=== PATIENT | female | born 1955 | race American Indian/Alaskan Native ===

== ENCOUNTER 2016-10-28 14:41 | Emergency (ER) | payer OTHER ==
[2016-10-28 14:41] VITALS: BMI 33.4
[2016-10-28 15:06] VITALS: BP 101/68; PULSE 70; RESP 19; TEMP 98.1; O2SAT 98
--- NOTE | 2016-10-28 15:44 | ED PDOC ---
Arrival/HPI - General Chief Complaint: Upper Extremity Problem/Injury Time Seen by Provider: 10/28/16 15:09 Historian: Patient - History of Present Illness Narrative History of Present Illness (Text): 10/28/16 15:41 61yo female who present to ED for left shoulder pain x one month. states she saw her PMD for the pain and was given unknown analgesic that helped the pain, but then ran out of the medication. States she was taking flexeril and pain medication that was given by her friend without relieve. she denies weakness, trauma, paresthesia, chest pain, any other complaint. Past Medical History - Provider Review Nursing Documentation Reviewed: Yes - Infectious Disease Hx of Infectious Diseases: None - Tetanus Immunization Tetanus Immunization: Unknown - Cardiac Hx Mitral Valve Prolapse: Yes - Psychiatric Hx Anxiety: Yes Hx Bipolar Disorder: Yes Hx Depression: No Hx Emotional Abuse: No Hx Physical Abuse: No Hx Substance Use: No - Surgical History Hx Orthopedic Surgery: Yes (RIGHT FOOT) - Anesthesia Hx Anesthesia: Yes Hx Anesthesia Reactions: No - Suicidal Assessment Feels Threatened In Home Enviroment: No Family/Social History - Physician Review Nursing Documentation Reviewed: Yes Family/Social History: Unknown Family HX Smoking Status: Never Smoked Hx Alcohol Use: No Hx Substance Use: No Hx Substance Use Treatment: No Allergies/Home Meds Allergies/Adverse Reactions: Allergies metronidazole Allergy (Verified 10/28/16 15:02) ANAPHYLAXIS Tetracyclines Allergy (Verified 10/28/16 15:02) ANAPHYLAXIS Home Medications: Home Meds Medication Instructions Recorded Confirmed Alprazolam [Xanax Xr] 2 mg PO DAILY 09/19/12 10/28/16 Perphenazine 8 mg PO HS 09/19/12 10/28/16 Trazodone Hydrochloride 300 mg PO HS 09/19/12 10/28/16 Review of Systems - Physician Review All systems were reviewed & negative as marked: Yes - Review of Systems Constitutional: Normal Eyes: Normal ENT: Normal Respiratory: Normal Cardiovascular: Normal Gastrointestinal: Normal Genitourinary Female: Normal Musculoskeletal: Arthralgias (LEft shoudler pain) Skin: Normal Neurological: Normal Endocrine: Normal Hemo/Lymphatic: Normal Psychiatric: Normal Physical Exam Vital Signs Reviewed: Yes Vital Signs Temp Pulse Resp BP Pulse Ox 10/28/16 15:05 98.1 F 70 19 101/68 98 Temperature: Afebrile Blood Pressure: Normal Pulse: Regular Respiratory Rate: Normal Appearance: Positive for: Well-Appearing, Non-Toxic, Comfortable Pain Distress: None Mental Status: Positive for: Alert and Oriented X 3 - Systems Exam Head: Present: Atraumatic, Normocephalic Pupils: Present: PERRL Extroacular Muscles: Present: EOMI Conjunctiva: Present: Normal Mouth: Present: Moist Mucous Membranes Neck: Present: Normal Range of Motion Respiratory/Chest: Present: Clear to Auscultation, Good Air Exchange. No: Respiratory Distress, Accessory Muscle Use Cardiovascular: Present: Regular Rate and Rhythm, Normal S1, S2. No: Murmurs Abdomen: Present: Normal Bowel Sounds. No: Tenderness, Distention, Peritoneal Signs Back: Present: Normal Inspection Upper Extremity: Present: Normal ROM, NORMAL PULSES, Tenderness (Left proximal shoulder), Neurovascularly Intact, Capillary Refill < 2s. No: Cyanosis, Edema, Swelling, Erythema, Temperature Abnormalties, Deformity Lower Extremity: Present: Normal Inspection. No: Edema Neurological: Present: GCS=15, CN II-XII Intact, Speech Normal Skin: Present: Warm, Dry, Normal Color. No: Rashes Psychiatric: Present: Alert, Oriented x 3, Normal Insight, Normal Concentration Medical Decision Making ED Course and Treatment: 10/28/16 16:09 Left shoulder xray - No acute fracture/Dislocation noted Result was DW the pt. Her pain was controlled in ED with medication. She was referred to orthoAllan Gutierrez with Napros[facility]. TRT ED for any new or worsening symptoms. - RAD Interpretation Radiology Orders: 10/28/16 15:11 SHOULDER LEFT [RAD] Stat - Medication Orders Current Medication Orders: Discontinued Medications Ketorolac Tromethamine (Toradol) 60 mg IM STAT STA Stop: 10/28/16 15:13 Disposition/Present on Arrival - Present on Arrival Any Indicators Present on Arrival: No History of DVT/PE: No History of Uncontrolled Diabetes: No Urinary Catheter: No History of Decub. Ulcer: No History Surgical Site Infection Following: None - Disposition Have Diagnosis and Disposition been Completed?: Yes Diagnosis: Shoulder pain Disposition: HOME/ ROUTINE Disposition Time: 16:10 Patient Plan: Discharge Condition: STABLE Discharge Instructions (ExitCare): Shoulder Pain (ED) Additional Instructions: Follow up with your Doctor/Orthopedist Return to ED for any new or worsening symptoms Prescriptions: Naproxen [Naprosyn] 500 mg PO BID #20 tab Referrals: Jez Gray III, MD [Medical Doctor] - Follow up with primary
--- NOTE | 2016-10-28 17:28 | RAD ---
PROCEDURE: Radiographs of the Left Shoulder HISTORY: shoulder pain COMPARISON: No prior. FINDINGS: BONES: Normal. No fracture. JOINTS: Unremarkable glenohumeral articulation. Very mild acromioclavicular degenerative arthritis. SOFT TISSUES: Normal. OTHER FINDINGS: None. IMPRESSION: Mild acromioclavicular degenerative arthritis. Otherwise unremarkable.
== END 2016-10-28 16:25 | disposition home or self-care (01) ==
LOC: ED 14:41
DX: M25.512 Pain in left shoulder (principal)
CPT/HCPCS: 73030; 96372; 99283; J1885

== ENCOUNTER 2016-11-21 20:13 | Inpatient (IN) | payer MEDICAID, OTHER ==
[2016-11-21 20:32] VITALS: BMI 28.9
--- NOTE | 2016-11-21 20:54 | ED PDOC ---
Arrival/HPI - General Chief Complaint: Psychiatric Evaluation Time Seen by Provider: 11/21/16 20:50 Historian: Patient - History of Present Illness Narrative History of Present Illness (Text): 11/21/16 20:51 61 y/o female, pmh including chronic anxiety, allergic to flagyl and tetaracyclines, c/o feeling anxious/depress and suicidal ideation x 3 days. Pt. stated that she has been on the xanax 0.5mg for years, recently change to xanax 0.25mg po which is not doing the job for her. Pt. stated that she feels very depress, sad, unable to sleep, wants to overdose on all her medications if she can not feel better. Pt. has no homicidal ideation. Pt. stated that she accepted the fact that her brother on 11/15/2016. Pt. has no auditory or visual hallucination, no homicidal or suicidal ideation. Past Medical History - Provider Review Nursing Documentation Reviewed: Yes - Infectious Disease Hx of Infectious Diseases: None - Tetanus Immunization Tetanus Immunization: Unknown - Reproductive Menopause: Yes - Cardiac Hx Mitral Valve Prolapse: Yes - Psychiatric Hx Anxiety: Yes Hx Bipolar Disorder: Yes Hx Substance Use: No - Surgical History Hx Orthopedic Surgery: Yes (RIGHT FOOT) - Anesthesia Hx Anesthesia: Yes Hx Anesthesia Reactions: No - Suicidal Assessment Feels Threatened In Home Enviroment: No Family/Social History - Physician Review Nursing Documentation Reviewed: Yes Family/Social History: Unknown Family HX Smoking Status: Never Smoked Hx Alcohol Use: No Hx Substance Use: No Hx Substance Use Treatment: No Allergies/Home Meds Allergies/Adverse Reactions: Allergies metronidazole Allergy (Verified 11/22/16 03:29) ANAPHYLAXIS Tetracyclines Allergy (Verified 11/22/16 03:29) ANAPHYLAXIS Home Medications: Home Meds Medication Instructions Recorded Confirmed ALPRAZolam [Xanax] 0.25 mg PO DAILY 11/21/16 11/22/16 traZODone [trazodone Hydrochloride] 300 mg PO HS 11/21/16 11/22/16 Review of Systems - Review of Systems Constitutional: absent: Fatigue, Fevers Eyes: absent: Vision Changes ENT: absent: Hearing Changes Respiratory: absent: SOB, Cough Cardiovascular: absent: Chest Pain Gastrointestinal: absent: Abdominal Pain, Nausea, Vomiting Musculoskeletal: absent: Arthralgias Skin: absent: Rash, Pruritis Neurological: absent: Headache, Dizziness Psychiatric: Anxiety, Depression, Suicidal Ideation Physical Exam Vital Signs Reviewed: Yes Vital Signs Temp Pulse Resp BP Pulse Ox 11/21/16 23:10 77 19 144/59 L 98 11/21/16 20:31 99.1 F 91 H 16 133/85 99 Temperature: Afebrile Blood Pressure: Normal Pulse: Regular Respiratory Rate: Normal Appearance: Positive for: Well-Appearing, Non-Toxic, Comfortable Pain Distress: None Mental Status: Positive for: Alert and Oriented X 3 - Systems Exam Head: Present: Atraumatic, Normocephalic Pupils: Present: PERRL Extroacular Muscles: Present: EOMI Conjunctiva: Present: Normal Mouth: Present: Moist Mucous Membranes Neck: Present: Normal Range of Motion Respiratory/Chest: Present: Clear to Auscultation, Good Air Exchange. No: Respiratory Distress, Accessory Muscle Use Cardiovascular: Present: Regular Rate and Rhythm, Normal S1, S2. No: Murmurs Abdomen: Present: Normal Bowel Sounds. No: Tenderness, Distention, Peritoneal Signs Back: Present: Normal Inspection Upper Extremity: Present: Normal Inspection. No: Cyanosis, Edema Lower Extremity: Present: Normal Inspection. No: Edema Neurological: Present: GCS=15, Speech Normal, Motor Func Grossly Intact, Gait Normal, Memory Normal Skin: Present: Warm, Dry, Normal Color. No: Rashes Psychiatric: Present: Alert, Oriented x 3, Normal Insight, Normal Concentration , Anxious, Depressed Mood, Suicidal Ideation. No: Homicidal Ideation Medical Decision Making ED Course and Treatment: 11/21/16 20:54 -labs/ua/uds -ekg/chest x-ray -HAZEL paged and will come to evaluate the patient. 11/21/16 23:00 -Labs are non-significant -UDS show +benzo -EKG show NSR @ 81 BPM, no ST elevation or depression, no T wave inversion -Chest x-ray show no active disease -HAZEL Grullon evaluated the patient, request to be admitted to DR. Angelia Long for bipolar disorder -I discussed with DR. Young and he will put in the admission order. - Lab Interpretations Lab Results: 11/21/16 21:35 11/21/16 21:35 Lab Results 11/21/16 22:00: Urine Opiates Screen Negative, Urine Methadone Screen Negative, Ur Barbiturates Screen Negative, Ur Phencyclidine Scrn Negative, Ur Amphetamines Screen Negative, U Benzodiazepines Scrn Positive H, U Oth Cocaine Metabols Negative, U Cannabinoids Screen Negative 11/21/16 21:35: Alcohol, Quantitative < 10 11/21/16 21:35: Salicylates < 1 L, Acetaminophen < 10.0 L 11/21/16 21:35: Sodium 142, Potassium 3.6, Chloride 103, Carbon Dioxide 29, Anion Gap 14, BUN 17, Creatinine 0.7, Est GFR ( Amer) > 60, Est GFR (Non- Af Amer) > 60, Random Glucose 101, Calcium 10.0, Total Bilirubin 0.7, AST 20, ALT 25, Alkaline Phosphatase 58, Total Protein 8.1, Albumin 4.5, Globulin 3.6, Albumin/Globulin Ratio 1.3 11/21/16 21:35: WBC 8.9 D, RBC 4.30, Hgb 13.1, Hct 38.7, MCV 90.0, MCH 30.5, MCHC 33.9, RDW 11.9, Plt Count 215, MPV 9.4, Gran % 69.5 H, Lymph % (Auto) 23.4 , [place] % (Auto) 6.8 H, Eos % (Auto) 0.1 L, Baso % (Auto) 0.2, Gran # 6.16, Lymph # 2.1, [place] # 0.6, Eos # 0.0, Baso # 0.02 I have reviewed the lab results: Yes Interpretation: No clinic. lab abnormalty - RAD Interpretation Radiology Orders: 11/21/16 20:50 CHEST PORTABLE [RAD] Stat no active disease Glove Examiner: Radiologist - Medication Orders Current Medication Orders: Acetaminophen (Tylenol 325mg Tab) 650 mg PO Q6 PRN PRN Reason: Pain, Mild (1-3) Al Hydrox/Mg Hydrox/Simethicone (Maalox Plus 30 Ml) 30 ml PO DAILY PRN PRN Reason: Indigestion / Heartburn Alprazolam (Xanax) 0.5 mg PO HS JIMMIE PRN Reason: Protocol Last Admin: 11/24/16 21:43 Dose: 0.5 mg Re-Assess: Reassess Psych Meds Document 11/24/16 22:43 WP (Rec: 11/24/16 23:05 WP [id number]) Reassess Psych Med Effective Ibuprofen (Motrin Tab) 400 mg PO Q6H PRN PRN Reason: Pain, moderate (4-7) Pantoprazole Sodium (Protonix Ec Tab) 40 mg PO 0600 [facility] Last Admin: 11/25/16 06:59 Dose: 40 mg Perphenazine (Perphenazine) 8 mg PO HS JIMMIE Last Admin: 11/24/16 21:43 Dose: 8 mg Trazodone HCl (Desyrel) 300 mg PO HS JIMMIE Last Admin: 11/24/16 21:44 Dose: 300 mg Zaleplon (Sonata) 10 mg PO HS PRN PRN Reason: Insomnia Discontinued Medications Alprazolam (Xanax) 0.25 mg PO DAILY JIMMIE PRN Reason: Protocol Stop: 11/29/16 08:01 Last Admin: 11/24/16 10:22 Dose: Not Given Non-Admin Reason: Patient Refused Perphenazine (Perphenazine) 4 mg PO BID JIMMIE Last Admin: 11/23/16 08:40 Dose: 4 mg Perphenazine (Perphenazine) 8 mg PO HS JIMMIE Perphenazine (Perphenazine) 4 mg PO HS JIMMIE Stop: 11/23/16 22:01 Last Admin: 11/23/16 21:36 Dose: 4 mg Trazodone HCl (Desyrel) 100 mg PO HS JIMMIE Last Admin: 11/21/16 22:00 Dose: 100 mg Zaleplon (Sonata) 5 mg PO HS PRN PRN Reason: Insomnia Last Admin: 11/22/16 21:42 Dose: 5 mg Zaleplon (Sonata) 5 mg PO HS PRN PRN Reason: Insomnia Last Admin: 11/24/16 21:50 Dose: 5 mg - PA / GOLF STUD RIVETER / Resident Statement /DO has reviewed & agrees with the documentation as recorded. Disposition/Present on Arrival - Present on Arrival Any Indicators Present on Arrival: No History of DVT/PE: No History of Uncontrolled Diabetes: No Urinary Catheter: No History of Decub. Ulcer: No History Surgical Site Infection Following: None - Disposition Have Diagnosis and Disposition been Completed?: Yes Diagnosis: Bipolar disorder Disposition: HOSPITALIZED Disposition Time: 23:02 Patient Plan: Admission Patient Problems: Current Active Problems Problem Status Onset Bipolar disorder Acute Anxiety Acute Insomnia Acute Condition: STABLE
[2016-11-21 21:40] LABS: ADD MANUAL DIFF? NO
[2016-11-21 21:47] LABS: BASO # 0.02 K/mm3 (0.0-2.0); BASO % 0.2 % (0.0-3.0); EOS % 0.1 % (1.5-5.0); GRAN # 6.16 (1.4-6.5); GRAN % 69.5 % (50.0-68.0); HEMATOCRIT 38.7 % (36.0-48.0); LYMPH # 2.1 (1.2-3.4); LYMPH % 23.4 % (22.0-35.0); MEAN CORPUSCULAR HEMOGLOBIN 30.5 pg (25.0-35.0); MEAN CORPUSCULAR HGB CONC 33.9 g/dl (31.0-37.0); MEAN PLATELET VOLUME 9.4 fl (7.0-11.0); MONO # 0.6 (0.1-0.6); MONO % 6.8 % (1.0-6.0); PLATELET COUNT 215 10^3/uL (120.0-450.0); RED CELL DISTRIBUTION WIDTH 11.9 % (11.5-14.5); WHITE BLOOD COUNT 8.9 10^3/ul (4.5-11.0)
[2016-11-21 21:54] LABS: ALB/GLOB RATIO 1.3 (1.1-1.8); ALKALINE PHOSPHATASE 58 U/L (38-133); ALT/SGPT 25 U/L (7-56); AST/SGOT 20 U/L (15-39); BILIRUBIN,TOTAL 0.7 mg/dL (0.2-1.3); BLOOD UREA NITROGEN 17 mg/dL (7-21); CARBON DIOXIDE 29 mmol/L (21-33); CHLORIDE 103 mmol/L (98-107); GFR AFRICAN-AMERICAN > 60; GLUCOSE,RANDOM 101 mg/dL (70-110); POTASSIUM 3.6 mmol/L (3.6-5.0); SODIUM 142 mmol/L (132-148); TOTAL PROTEIN 8.1 g/dL (5.8-8.3)
[2016-11-21 23:11] LABS: PH,URINE 6.5 (4.7-8.0); URINE BILIRUBIN NEGATIVE (NEGATIVE); URINE BLOOD NEGATIVE (NEGATIVE); URINE GLUCOSE (UA) NEGATIVE (NEGATIVE); URINE KETONE TRACE mg/dL (NEGATIVE); URINE LEUKOCYTE ESTERASE NEGATIVE Leu/uL (NEGATIVE); URINE PROTEIN NEGATIVE mg/dL (<30 mg/dL)
[2016-11-21 23:19] LABS: URINE APPEARANCE CLEAR (CLEAR); URINE COLOR YELLOW (YELLOW)
[2016-11-22] MEDS ORDERED: Alum-Mag Hydrox-Simethicone Susp (30 mL) PO PRN (03:38)
--- NOTE | 2016-11-22 04:00 | PCM.BM ---
<AntoninaArturo O - Last Filed: 11/22/16 03:48> Treatment Plan Problems - Problems identified on initial assessmt DEPRESSION Date Initiated: 11/22/16 Time Initiated: :20 Assessment reference: NA Status: Active POOR SLEEP Date Initiated: 11/22/16 Time Initiated: :20 Assessment reference: NA Status: Active Treatment assets and liabiliti Patient Assests: cooperative, ADL independent, physically healthy, good support system Patient Liabilities: financial problems - Milieu Protocol Maintain good personal hygiene: daily Encourage regular showers, daily Remind patient to perform daily oral care, daily Assist patient to perform ADL's Conduct patient checks and document Observation sheet: Q15 minutes Maintain personal safety: daily Educate patient to report safety concerns to staff, daily Monitor environment for contraband/sharps Medication safety: Monitor for expected outcome, potential side effects: daily, Assess barriers to learning: daily, Assess readiness for medication education: daily Family Contact Family contact: Patient agrees to contact Family contact name: Heather [phone] dominick [phone] Discharge/Continuing Care - Education Needs Education Needs: Patient Medication, Patient Diagnosis/Disease Process, Patient Coping Skills, Patient Anger Management skills, Patient Placement options, Patient Community resources, Patient Activities of Daily Living, Patient Pain, Patient Nutrition - Discharge Discharge Criteria: Free of Suicidal thoughts, Normal sleep pattern, Ability to care for self Discharge to:: Home <Pablo Wiley - Last Filed: 11/24/16 07:54> - Diagnosis (1) Anxiety Status: Acute (2) Insomnia Status: Acute (3) Bipolar disorder Status: Acute <Carolyn Vasquez - Last Filed: 11/24/16 13:30> Family Contact - Outside Agency [facility] Care involvment: Not involved Agency contact name: [facility] Agency contact number: [phone] <Stacy Vlilegas - Last Filed: 11/24/16 15:49>
[2016-11-22 08:35] LABS: CHOLESTEROL 204 mg/dL (130-200)
--- NOTE | 2016-11-22 09:51 | PCM.PSYCH ---
Initial Psychiatric Evaluation - Initial Psychiatric Evaluation Type of Admission: Voluntary Legal Status: Capacity Chief Complaint (in patient's own words): "I started feeling really bad after my doctor changed my meds" Patient's Reaction to Hospitalization: Patient is a single 61 y/o female history of depression, anxiety and hallucinations, reportedly 10-20 admissions in the past- most recently 10 years ago, prior SA x 10 years ago, in treatment with Dr. Ayala at [facility] who presented to the ER with complaints of anxiety, depression, poor sleep and suicidal ideation x 3 days. Pt. reported that her main stressor was the recent change in her psychiatric medications approximately one week ago. Patient indicates that Dr. Ayala lowered her trazodone dose from 300 mg to 100 mg and decreased her Xanax dose by 50% from 0.5 mg HS to 0.25 mg HS. Patient reports that Dr. Ayala did this because he felt her doses were too high. She wasn't entirely comfortable with this plan at the time. Patient also indicates that trilafon 8 mg HS was also discontinued upon her request because she hasn't experienced any hallucinations in many years. Patient reports experiencing increased lability, anhedonia, crying spells, anxiety, insomnia and poor appetite since these medication changes. Patient also had passive suicidal thoughts but these have remitted since admission. She tried reaching out to Dr. Ayala but according to patient, he did not call her back. Patient reports feeling quite stable on her prior regimen and would like to resume prior doses. She denies any hallucinations and does not appear to be responding to internal stimuli. Thus far she has been in very good control on the unit. Affect is constricted and thought process is a little scattered and tangential but she is easily redirected. Insight and judgement are fair. OF NOTE: ER report indicated that patient's brother on 11/15/2016 however patient did not offer this information during admission assessment. PSYCHIATRIC HISTORY Patient reports approximately 10 to 20 prior admissions, her first admission was in her early 20s. Patient's most recent admission was greater than 10 years ago. Indicate prior admissions were at [facility] as well as [facility]. Patient also reports multiple suicide attempts, her most recent one was greater than 10 years ago. Patient currently in treatment at [facility] with Dr. Ayala. She has been seeing Dr. Ayala for less than a year. SOCIAL HISTORY Patient was born and raised in [place]. She reports one annulled marriage many years ago. She has three adult children. Patient's adult son sometimes stays with her as well as her grandson. Patient is unemployed and on disability. Patient graduated high school and some college. She denies any tobacco, drug or alcohol use. Current Medications: Active Medications Generic Name Dose Route Start Last Admin Trade Name Freq PRN Reason Stop Dose Admin Acetaminophen 650 mg 11/22/16 03:33 Tylenol 325mg Tab PO Q6 PRN Pain, Mild (1-3) Al Hydrox/Mg Hydrox/Simethicone 30 ml 11/22/16 03:38 Maalox Plus 30 Ml PO DAILY PRN Indigestion / Heartburn Alprazolam 0.5 mg 11/21/16 23:45 11/21/16 22:30 Xanax PO 0.5 mg HS JIMMIE Administration Protocol Alprazolam 0.25 mg 11/22/16 08:00 11/22/16 08:22 Xanax PO 11/29/16 08:01 0.25 mg DAILY JIMMIE Administration Protocol Perphenazine 4 mg 11/22/16 08:00 11/22/16 08:22 Perphenazine PO 4 mg BID JIMMIE Administration Trazodone HCl 100 mg 11/21/16 23:45 11/21/16 22:00 Desyrel PO 100 mg HS JIMMIE Administration Zaleplon 5 mg 11/21/16 23:45 Sonata PO HS PRN Insomnia Past Psychiatric History - Past Psychiatric History Pertinent Medical Hx (Current Medical&Sleep Prob, Allergies): Allergies Allergy/AdvReac Type Severity Reaction Status Date / Time metronidazole Allergy ANAPHYLAXIS Verified 11/22/16 03:29 Tetracyclines Allergy ANAPHYLAXIS Verified 11/22/16 03:29 ALPRAZolam [Xanax] 0.25 mg PO DAILY 11/21/16 traZODone [trazodone Hydrochloride] 300 mg PO HS 11/21/16 Mental Status Examination - Affect Affect: Constricted - Motor Activity Motor Activity: Calm - Reliability in Providing Information Reliability in Providing Information: Fair - Speech Speech: Tangential, Other (SCATTERED WITH SOME DIFFICULTY WITH WORD RETRIEVAL) - Formal Thought Process Formal Thought Process: Loosening of associations - Obsessions/Compulsions Obsessions: No Compulsions: No - Cognitive Functions Orientation: Person, Place, Situation Sensorium: Alert Attention/Concentration: Attentive Estimate of Intelligence: Average Judgement: Intact, as evidence by: Insight regarding need for hospitalization Memory: Recent intact, as evidence by: Ability to recall events of the day - Risk Risk: Suicidal, Diminished functioning - Strength & Assets Inventory Strength & Assets Inventory: Family support, Cooperative DSM 5 DX - DSM 5 DSM 5 Diagnosis: Schizoaffective Disorder Anxiety Disorder NOS R/O PONHCO - Recommended/Plan of Treatment Treatment Recommendations and Plan of Treatment: * group, milieu and supportive tx * xanax 0.25 mg AM and 0.5 mg HS for anxiety * Trazodone 300 mg HS for depression and off-label for insomnia * trilafon 4 mg po BID for hx of hallucinations as well current disorganization * Awaiting medical follow up * Vitals reviewed and noted below: Selected Entries 11/21/16 11/21/16 20:31 23:10 Temperature 99.1 F Pulse Rate 91 H 77 Respiratory 16 19 Rate Blood Pressure 133/85 O2 Sat by Pulse 99 98 Oximetry ER LABS 11/21/16 22:00: Urine Opiates Screen Negative, Urine Methadone Screen Negative, Ur Barbiturates Screen Negative, Ur Phencyclidine Scrn Negative, Ur Amphetamines Screen Negative, U Benzodiazepines Scrn Positive H, U Oth Cocaine Metabols Negative, U Cannabinoids Screen Negative 11/21/16 21:35: Alcohol, Quantitative < 10 11/21/16 21:35: Salicylates < 1 L, Acetaminophen < 10.0 L 11/21/16 21:35: Sodium 142, Potassium 3.6, Chloride 103, Carbon Dioxide 29, Anion Gap 14, BUN 17, Creatinine 0.7, Est GFR ( Amer) > 60, Est GFR (Non- Af Amer) > 60, Random Glucose 101, Calcium 10.0, Total Bilirubin 0.7, AST 20, ALT 25, Alkaline Phosphatase 58, Total Protein 8.1, Albumin 4.5, Globulin 3.6, Albumin/Globulin Ratio 1.3 11/21/16 21:35: WBC 8.9 D, RBC 4.30, Hgb 13.1, Hct 38.7, MCV 90.0, MCH 30.5, MCHC 33.9, RDW 11.9, Plt Count 215, MPV 9.4, Gran % 69.5 H, Lymph % (Auto) 23.4 , [place] % (Auto) 6.8 H, Eos % (Auto) 0.1 L, Baso % (Auto) 0.2, Gran # 6.16, Lymph # 2.1, [place] # 0.6, Eos # 0.0, Baso # 0.02 FLOOR LABS 11/22/16 11/22/16 06:50 06:50 Triglycerides 87 Cholesterol 204 H LDL Cholesterol Direct 88 HDL Cholesterol 86 H TSH 3rd Generation 1.66 - Smoking Cessation Smoking Cessation Initiated: No Reason for not providing: PATIENT DENIES TOBACCO USE
--- NOTE | 2016-11-22 11:41 | RAD ---
HISTORY: medical clearance COMPARISON: 10/14/2013 FINDINGS: LUNGS: No active pulmonary disease. PLEURA: No significant pleural effusion identified, no pneumothorax apparent. CARDIOVASCULAR: Normal. OSSEOUS STRUCTURES: No significant abnormalities. VISUALIZED UPPER ABDOMEN: Normal. OTHER FINDINGS: None. IMPRESSION: No active disease.
--- NOTE | 2016-11-22 15:16 | CP.PCM.CON ---
<CASEY ALVARADO - Last Filed: 11/22/16 15:04> History of Present Illness - History of Present Illness History of Present Illness: Medicine Consult Note: Ms. Barker is a 61 year old female with a past medical history significant for depression, anxiety and bipolar disorder presented to [facility] with complaints of anxiety, depression, poor sleep, and suicidal ideation. She reports that the she takes no medications other than the ones prescribed to her by her psychiatrist, Dr. Ayala. Her primary care doctor is Dr. Storey and she sees her for regularly scheduled health maintenance visits and routine lab work. Patient states that she has never been notified of any abnormal results or been told that she has been diagnosed with any medical conditions other than her psychiatric diagnoses. Patient did report that she has had some pain in her left shoulder. A shoulder X-Ray was performed in October 2016 and showed mild AC joint degenerative arthritis. Dr. Storey is aware of this and has prescribed her Naprosyn, scheduled an outpatient MRI and given patient several options for outpatient PT/OT. She denies headache, dizziness, changes in vision, difficulty swallowing, chest pain, palpitations, shortness of breath, cough, abdominal pain , N/V, diarrhea and any numbness/tingling in any of her extremities. Review of Systems - Review of Systems All systems: reviewed and no additional remarkable complaints except (no complaints) Past Patient History - Infectious Disease Hx of Infectious Diseases: None - Tetanus Immunizations Tetanus Immunization: Unknown - Past Social History Smoking Status: Never Smoked - CARDIAC Hx Mitral Valve Prolapse: Yes - PSYCHIATRIC Hx Anxiety: Yes Hx Bipolar Disorder: Yes Hx Substance Use: No - SURGICAL HISTORY Hx Orthopedic Surgery: Yes (RIGHT FOOT) - ANESTHESIA Hx Anesthesia: Yes Hx Anesthesia Reactions: No Meds Allergies/Adverse Reactions: Allergies Allergy/AdvReac Type Severity Reaction Status Date / Time metronidazole Allergy ANAPHYLAXIS Verified 11/22/16 03:29 Tetracyclines Allergy ANAPHYLAXIS Verified 11/22/16 03:29 - Medications Medications: Current Medications Acetaminophen (Tylenol 325mg Tab) 650 mg PO Q6 PRN PRN Reason: Pain, Mild (1-3) Al Hydrox/Mg Hydrox/Simethicone (Maalox Plus 30 Ml) 30 ml PO DAILY PRN PRN Reason: Indigestion / Heartburn Alprazolam (Xanax) 0.5 mg PO HS JIMMIE PRN Reason: Protocol Last Admin: 11/21/16 22:30 Dose: 0.5 mg Alprazolam (Xanax) 0.25 mg PO DAILY JIMMIE PRN Reason: Protocol Stop: 11/29/16 08:01 Last Admin: 11/22/16 08:22 Dose: 0.25 mg Perphenazine (Perphenazine) 4 mg PO BID JIMMIE Last Admin: 11/22/16 08:22 Dose: 4 mg Trazodone HCl (Desyrel) 300 mg PO HS JIMMIE Zaleplon (Sonata) 5 mg PO HS PRN PRN Reason: Insomnia Physical Exam - Constitutional Appears: No Acute Distress - Head Exam Head Exam: NORMAL INSPECTION, NORMOCEPHALIC - Eye Exam Eye Exam: EOMI, Normal appearance - ENT Exam ENT Exam: Mucous Membranes Moist, Normal Exam - Neck Exam Neck exam: Positive for: Full Rom, Normal Inspection. Negative for: Lymphadenopathy - Respiratory Exam Respiratory Exam: Clear to Auscultation Bilateral, NORMAL BREATHING PATTERN. absent: Rales, Rhonchi, Wheezes, Respiratory Distress - Cardiovascular Exam Cardiovascular Exam: REGULAR RHYTHM, RRR, +S1, +S2. absent: Systolic Murmur - GI/Abdominal Exam GI & Abdominal Exam: Normal Bowel Sounds, Soft. absent: Diminished Bowel Sounds , Distended, Firm, Guarding, Hernia, Rigid, Tenderness - Extremities Exam Extremities exam: Negative for: calf tenderness, tenderness Additional comments: Limited ROM of L shoulder abduction - Neurological Exam Neurological exam: Alert, Normal Gait, Oriented x3 - Psychiatric Exam Psychiatric exam: Normal Affect, Normal Mood - Skin Skin Exam: Dry, Intact, Normal Color, Warm Results - Vital Signs Recent Vital Signs: Last Vital Signs Temp 99.1 F 11/21/16 20:31 Pulse 77 11/21/16 23:10 Resp 19 11/21/16 23:10 BP 144/59 L 11/21/16 23:10 Pulse Ox 98 11/21/16 23:10 - Labs Result Diagrams: 11/21/16 21:35 11/21/16 21:35 Labs: Laboratory Results - last 24 hr 11/21/16 11/22/16 11/22/16 23:00 06:50 06:50 Triglycerides 87 Cholesterol 204 H LDL Cholesterol Direct 88 HDL Cholesterol 86 H TSH 3rd Generation 1.66 Urine Color Yellow Urine Appearance Clear Urine pH 6.5 Ur Specific [place] 1.020 Urine Protein Negative Urine Glucose (UA) Negative Urine Ketones Trace H Urine Blood Negative Urine Nitrate Negative Urine Bilirubin Negative Urine Urobilinogen 1.0 H Ur Leukocyte Esterase Negative Assessment & Plan - Assessment and Plan (Free Text) Assessment: Ms. Barker is a 61 year old female with a past medical history significant for depression, anxiety and bipolar disorder presented to [facility] with complaints of anxiety, depression, poor sleep, and suicidal ideation. Plan: 1. Left Shoulder Pain -motrin PRN -PT/OT evaluation and treatment before discharge -f/u with outpatient MRI and PT/OT recommendations Patient seen and case discussed in detail with attending, Dr. Carvalho. The medicine team is signing off of this patient, as she is medically stable. Please feel free to re-consult if necessary. Thank you for allowing us to participate in the care of this patient. - Date & Time Date: 11/22/16 Time: 14:15 <Maryann Carvalho - Last Filed: 11/22/16 17:29> Meds - Medications Medications: Current Medications Acetaminophen (Tylenol 325mg Tab) 650 mg PO Q6 PRN PRN Reason: Pain, Mild (1-3) Al Hydrox/Mg Hydrox/Simethicone (Maalox Plus 30 Ml) 30 ml PO DAILY PRN PRN Reason: Indigestion / Heartburn Alprazolam (Xanax) 0.5 mg PO HS JIMMIE PRN Reason: Protocol Last Admin: 11/21/16 22:30 Dose: 0.5 mg Alprazolam (Xanax) 0.25 mg PO DAILY JIMMIE PRN Reason: Protocol Stop: 11/29/16 08:01 Last Admin: 11/22/16 08:22 Dose: 0.25 mg Ibuprofen (Motrin Tab) 400 mg PO Q6H PRN PRN Reason: Pain, moderate (4-7) Pantoprazole Sodium (Protonix Ec Tab) 40 mg PO 0600 JIMMIE Perphenazine (Perphenazine) 4 mg PO BID JIMMIE Last Admin: 11/22/16 08:22 Dose: 4 mg Trazodone HCl (Desyrel) 300 mg PO HS JIMMIE Zaleplon (Sonata) 5 mg PO HS PRN PRN Reason: Insomnia Results - Vital Signs Recent Vital Signs: Last Vital Signs Temp 98.8 F 11/22/16 07:00 Pulse 84 11/22/16 16:00 Resp 20 11/22/16 07:00 BP 136/73 11/22/16 16:00 Pulse Ox 98 11/21/16 23:10 - Labs Result Diagrams: 11/21/16 21:35 11/21/16 21:35 Labs: Laboratory Results - last 24 hr 11/21/16 11/22/16 11/22/16 23:00 06:50 06:50 Triglycerides 87 Cholesterol 204 H LDL Cholesterol Direct 88 HDL Cholesterol 86 H TSH 3rd Generation 1.66 Urine Color Yellow Urine Appearance Clear Urine pH 6.5 Ur Specific [place] 1.020 Urine Protein Negative Urine Glucose (UA) Negative Urine Ketones Trace H Urine Blood Negative Urine Nitrate Negative Urine Bilirubin Negative Urine Urobilinogen 1.0 H Ur Leukocyte Esterase Negative Attending/Attestation - Attestation I have personally seen and examined this patient.: Yes I have fully participated in the care of the patient.: Yes I have reviewed all pertinent clinical information: Yes Notes (Text): 11/22/16 17:23 attending note; Patient seen and examined with resident in room 517. Patient is a 61-year-old female admitted with anxiety and depression. L shoulder pain. recent x ray showed acromioclavicular athritis. PT eval recommended. Outpatient MRI ordered by PMD. continue motrin prn. GI prophylaxis. labs reviewed. Patient is clinically stable. Follow-up with PMD Dr. Storey.
--- NOTE | 2016-11-22 20:49 | CARD ---
APPROVED REPORT EKG Measurement Heart [id number] <Conclusion> Normal sinus rhythm Possible Left atrial enlargement Borderline ECG
[2016-11-23] MEDS: Pantoprazole 40 mg EC Tab PO SCH (08:39)
--- NOTE | 2016-11-23 08:55 | PCM.PYCHPN ---
Psychiatric Progress Note - Psychiatric Progress Note Patient seen today, length of contact: 25 min Patient Chief Complaint: "better" Problems Identified/Issues Discussed: I reviewed recent notes and patient was interviewed at bedside. Patient remains alert and well-oriented to circumstances. Reports that she is feeling a little better since her admission and has been tolerating her medications well. Mood and anxiety are improving and she denies any side effects or current discomfort/ pain. Her thought process is also a little bit more organized today though can be overinclusive. She continues to deny having any hallucinations. She feels more hopeful. Staff notes indicate she has been visible on the unit and interacting well with staff and peers but does appear anxious. Patient actively participated in all groups yesterday and appears motivated for improvement. There were no behavioral issues overnight Diagnostic Results: Schizoaffective Disorder Anxiety Disorder NOS R/O PONCHO Medication Change: No Medical Record Reviewed: Yes Mental Status Examination - Cognitive Function Orientation: Person, Place, Situation Attention: WNL Concentration: WNL - Mood Mood: Depressed (better), Anxious (better) - Affect Affect: Constricted - Formal Thought Process Formal Thought Process: Loosening of associations (improving very well, still overinclusive) - Suicidal Ideation Suicidal Ideation: No - Homicidal Ideation Homicidal Ideation: No Goal/Treatment Plan - Goal/Treatment Plan Progress Toward Problem(s) and Goals/Treatment Plan: * group, milieu and supportive tx * xanax 0.25 mg AM and 0.5 mg HS for anxiety * Trazodone 300 mg HS for depression and off-label for insomnia * trilafon 8 mg po HS for hx of hallucinations as well disorganization * Appreciate f/u by Dr. Carvalho on 11/22/16 (For Left Shoulder Pain rec motrin PRN, PT/OT evaluation and treatment before discharge, f/u with outpatient MRI and PT/OT recommendations. Signed off) * Vitals reviewed and noted below: Selected Entries 11/22/16 11/22/16 07:00 16:00 Temperature 98.8 F Pulse Rate 67 84 Respiratory 20 Rate Blood Pressure 122/62 136/73 ER LABS 11/21/16 22:00: Urine Opiates Screen Negative, Urine Methadone Screen Negative, Ur Barbiturates Screen Negative, Ur Phencyclidine Scrn Negative, Ur Amphetamines Screen Negative, U Benzodiazepines Scrn Positive H, U Oth Cocaine Metabols Negative, U Cannabinoids Screen Negative 11/21/16 21:35: Alcohol, Quantitative < 10 11/21/16 21:35: Salicylates < 1 L, Acetaminophen < 10.0 L 11/21/16 21:35: Sodium 142, Potassium 3.6, Chloride 103, Carbon Dioxide 29, Anion Gap 14, BUN 17, Creatinine 0.7, Est GFR ( Amer) > 60, Est GFR (Non- Af Amer) > 60, Random Glucose 101, Calcium 10.0, Total Bilirubin 0.7, AST 20, ALT 25, Alkaline Phosphatase 58, Total Protein 8.1, Albumin 4.5, Globulin 3.6, Albumin/Globulin Ratio 1.3 11/21/16 21:35: WBC 8.9 D, RBC 4.30, Hgb 13.1, Hct 38.7, MCV 90.0, MCH 30.5, MCHC 33.9, RDW 11.9, Plt Count 215, MPV 9.4, Gran % 69.5 H, Lymph % (Auto) 23.4 , [place] % (Auto) 6.8 H, Eos % (Auto) 0.1 L, Baso % (Auto) 0.2, Gran # 6.16, Lymph # 2.1, [place] # 0.6, Eos # 0.0, Baso # 0.02 FLOOR LABS 11/22/16 11/22/16 06:50 06:50 Triglycerides 87 Cholesterol 204 H LDL Cholesterol Direct 88 HDL Cholesterol 86 H TSH 3rd Generation 1.66
[2016-11-24] MEDS: Pantoprazole 40 mg EC Tab PO SCH (06:58)
--- NOTE | 2016-11-24 10:59 | PCM.PYCHPN ---
Psychiatric Progress Note - Psychiatric Progress Note Patient seen today, length of contact: 25 min Patient Chief Complaint: "better" Problems Identified/Issues Discussed: I reviewed recent notes and patient was interviewed at bedside and seen again during treatment team meeting. Patient remains groomed, alert and well-oriented to circumstances. Reports that she is feeling better since her admission and has been tolerating her medications well. Mood and anxiety are improving and she denies any side effects or current discomfort/pain. Patient reports that she slept poorly last night and would like a sleep aid. Her thought process is also more organized today though she still can be overinclusive. She continues to deny having any hallucinations. She feels more hopeful. Staff notes indicate she has been visible on the unit and interacting well with staff and peers. Seen smiling and has made jokes. Patient actively participates in groups and appears motivated for improvement. There were no behavioral issues overnight Diagnostic Results: Schizoaffective Disorder Anxiety Disorder NOS R/O PONCHO Medication Change: Yes (xanax decreased and sonata 5 mg HS initiated on 11/24/16) Medical Record Reviewed: Yes Mental Status Examination - Cognitive Function Orientation: Person, Place, Situation Attention: WNL Concentration: WNL - Mood Mood: Depressed (better), Anxious (better) - Affect Affect: Constricted (more reactive) - Speech Speech: Appropriate - Formal Thought Process Formal Thought Process: Loosening of associations (improving very well, still overinclusive) - Suicidal Ideation Suicidal Ideation: No - Homicidal Ideation Homicidal Ideation: No Goal/Treatment Plan - Goal/Treatment Plan Need for Continued Stay: Remain at risks for inpatient hospitalization Progress Toward Problem(s) and Goals/Treatment Plan: * group, milieu and supportive tx * xanax 0.25 mg AM and 0.5 mg HS decreased to 0.5 mg po HS on 11/24/16. Patient reports anxiety is under control in the AM and she doesn't need AM dose. * Trazodone 300 mg HS for depression and off-label for insomnia * trilafon 8 mg po HS for hx of hallucinations as well disorganization * Sonata 5 mg po HS prn started on 11/24/16 for insomna * Appreciate f/u by Dr. Carvalho on 11/22/16 (For Left Shoulder Pain rec motrin PRN, PT/OT evaluation and treatment before discharge, f/u with outpatient MRI and PT/OT recommendations. Signed off) * Vitals reviewed and noted below: Selected Entries 11/23/16 11/23/16 07:00 16:30 Temperature 97.3 F L Pulse Rate 75 87 Respiratory 20 Rate Blood Pressure 96/43 L 139/79 11/22/16 11/22/16 06:50 06:50 Triglycerides 87 Cholesterol 204 H LDL Cholesterol Direct 88 HDL Cholesterol 86 H TSH 3rd Generation 1.66 11/22/16 06:50 Hemoglobin A1c 4.8 ER LABS 11/21/16 22:00: Urine Opiates Screen Negative, Urine Methadone Screen Negative, Ur Barbiturates Screen Negative, Ur Phencyclidine Scrn Negative, Ur Amphetamines Screen Negative, U Benzodiazepines Scrn Positive H, U Oth Cocaine Metabols Negative, U Cannabinoids Screen Negative 11/21/16 21:35: Alcohol, Quantitative < 10 11/21/16 21:35: Salicylates < 1 L, Acetaminophen < 10.0 L 11/21/16 21:35: Sodium 142, Potassium 3.6, Chloride 103, Carbon Dioxide 29, Anion Gap 14, BUN 17, Creatinine 0.7, Est GFR ( Amer) > 60, Est GFR (Non- Af Amer) > 60, Random Glucose 101, Calcium 10.0, Total Bilirubin 0.7, AST 20, ALT 25, Alkaline Phosphatase 58, Total Protein 8.1, Albumin 4.5, Globulin 3.6, Albumin/Globulin Ratio 1.3 11/21/16 21:35: WBC 8.9 D, RBC 4.30, Hgb 13.1, Hct 38.7, MCV 90.0, MCH 30.5, MCHC 33.9, RDW 11.9, Plt Count 215, MPV 9.4, Gran % 69.5 H, Lymph % (Auto) 23.4 , [place] % (Auto) 6.8 H, Eos % (Auto) 0.1 L, Baso % (Auto) 0.2, Gran # 6.16, Lymph # 2.1, [place] # 0.6, Eos # 0.0, Baso # 0.02 FLOOR LABS 11/22/16 11/22/16 06:50 06:50 Triglycerides 87 Cholesterol 204 H LDL Cholesterol Direct 88 HDL Cholesterol 86 H TSH 3rd Generation 1.66
[2016-11-25] MEDS: Pantoprazole 40 mg EC Tab PO SCH (06:59)
--- NOTE | 2016-11-25 14:57 | PCM.PYCHPN ---
Psychiatric Progress Note - Psychiatric Progress Note Patient seen today, length of contact: 30min Patient Chief Complaint: "my mother , my brother just ..." Problems Identified/Issues Discussed: Suicide/ homicide prevention, past psychiatric h/o, current psychiatric symptoms , medical problems, risk/benefits and alternatives of medications, medications compliance, coping strategies, substance abuse h/o, relapse prevention, importance of follow up with psychiatrist and therapist, discharge plan. Medical Problems: ?degenerative joint disease consult appreciated Diagnostic Results: 11/21/16 21:35 11/21/16 21:35 Lab Results 11/22/16 06:50: TSH 3rd Generation 1.66 11/22/16 06:50: Hemoglobin A1c 4.8 11/22/16 06:50: Triglycerides 87, Cholesterol 204 H, LDL Cholesterol Direct 88, HDL Cholesterol 86 H 11/21/16 23:00: Urine Color Yellow, Urine Appearance Clear, Urine pH 6.5, Ur Specific [place] 1.020, Urine Protein Negative, Urine Glucose (UA) Negative, Urine Ketones Trace H, Urine Blood Negative, Urine Nitrate Negative, Urine Bilirubin Negative, Urine Urobilinogen 1.0 H, Ur Leukocyte Esterase Negative 11/21/16 22:00: Urine Opiates Screen Negative, Urine Methadone Screen Negative, Ur Barbiturates Screen Negative, Ur Phencyclidine Scrn Negative, Ur Amphetamines Screen Negative, U Benzodiazepines Scrn Positive H, U Oth Cocaine Metabols Negative, U Cannabinoids Screen Negative 11/21/16 21:35: Alcohol, Quantitative < 10 11/21/16 21:35: Salicylates < 1 L, Acetaminophen < 10.0 L 11/21/16 21:35: Sodium 142, Potassium 3.6, Chloride 103, Carbon Dioxide 29, Anion Gap 14, BUN 17, Creatinine 0.7, Est GFR ( Amer) > 60, Est GFR (Non- Af Amer) > 60, Random Glucose 101, Calcium 10.0, Total Bilirubin 0.7, AST 20, ALT 25, Alkaline Phosphatase 58, Total Protein 8.1, Albumin 4.5, Globulin 3.6, Albumin/Globulin Ratio 1.3 11/21/16 21:35: WBC 8.9 D, RBC 4.30, Hgb 13.1, Hct 38.7, MCV 90.0, MCH 30.5, MCHC 33.9, RDW 11.9, Plt Count 215, MPV 9.4, Gran % 69.5 H, Lymph % (Auto) 23.4 , [place] % (Auto) 6.8 H, Eos % (Auto) 0.1 L, Baso % (Auto) 0.2, Gran # 6.16, Lymph # 2.1, [place] # 0.6, Eos # 0.0, Baso # 0.02 Vital Signs Temp Pulse Resp BP Pulse Ox 11/25/16 07:45 98.1 F 82 20 110/59 L 11/24/16 16:18 93 H 129/71 11/23/16 16:30 87 139/79 11/23/16 07:00 97.3 F L 75 20 96/43 L 11/22/16 16:00 84 136/73 11/22/16 07:00 98.8 F 67 20 122/62 11/21/16 23:10 77 19 144/59 L 98 11/21/16 20:31 99.1 F 91 H 16 133/85 99 DSM 5 Symptoms Update: as per 's evaluation: Patient is a single 61 y/o female history of depression, anxiety and hallucinations, reportedly 10-20 admissions in the past- most recently 10 years ago, prior SA x 10 years ago, in treatment with Dr. Ayala at [facility] who presented to the ER with complaints of anxiety, depression, poor sleep and suicidal ideation x 3 days. pt was seen and examined at the tx team meeting room, presented to have fair personal hygiene, thought process is circumstantial and tangential. as per pt's report pt had a lot of changes in her meds, "trazodone was discontinued, I was on it for more than 18years", when asked why pt was not able to explain, pt said that since that time she was not able to sleep, decreased her appetite, was keep losing weight, pt also reported that she was feeling so down and depressed that she wanted to end up her life, pt said that she called [facility] but her [employer] was busy and she was not able to contract for safety and she called 911. pt has h/o hearing "devil voice, he was shining into my eyes and was pushing me to jump off the building, it was scary" (was 10years ago), pt denied any current psychotic symptoms, but has disorganized thoughts, irritability, pt said that her mother this night, but this write is not sure how true is this info. as per staff pt is compliant with meds, no behavioral issues. pt tolerates meds well, no side effects observed or reported, AIMS 0, no EPS. Impression: schizoaffective. Medication Change: Yes (sonata was increased to 10mg po hs) Medical Record Reviewed: Yes Consults ordered or reviewed: Medical consult appreciated, see notes for more detailed information Mental Status Examination - Cognitive Function Orientation: Person, Place, Situation Memory: Intact Attention: Poor Concentration: Poor Association: Loose Fund of Knowledge: Poor - Mood Mood: Depressed (I wanted to ), Anxious (better) - Affect Affect: Constricted (more reactive) - Speech Speech: Appropriate - Formal Thought Process Formal Thought Process: Loosening of associations (improving) - Suicidal Ideation Suicidal Ideation: No - Homicidal Ideation Homicidal Ideation: No Goal/Treatment Plan - Goal/Treatment Plan Need for Continued Stay: Remain at risks for inpatient hospitalization, Severe depression anxiety, Discharge may exacerbated symptoms, Severe functional impairment Progress Toward Problem(s) and Goals/Treatment Plan: milieu, structure, supportive therapy Sonata will be increased to 10 mg at the nighttime for insomnia Trilafon 8 mg will be continued for psychosis Trazodone 300mg will be continued for depression as well as insomnia xanax 0.5 Mg at the Nighttime for Anxiety As Well As Insomnia Will Be Continued SW evaluation will monitor closely Estimated Date of D/C: 11/28/16 (we will monitor closely) - Smoking Cessation Smoking Cessation Initiated: No Reason for not providing: patient denied smoking
[2016-11-26] MEDS: Pantoprazole 40 mg EC Tab PO SCH ×2 (07:03→07:07)
--- NOTE | 2016-11-26 14:54 | PCM.PYCHPN ---
Psychiatric Progress Note - Psychiatric Progress Note Patient seen today, length of contact: 30min Patient Chief Complaint: "I did not sleep last night at all" Problems Identified/Issues Discussed: Suicide/ homicide prevention, past psychiatric h/o, current psychiatric symptoms , medical problems, risk/benefits and alternatives of medications, medications compliance, coping strategies, substance abuse h/o, relapse prevention, importance of follow up with psychiatrist and therapist, discharge plan. Medical Problems: ?degenerative joint disease consult appreciated Diagnostic Results: 11/21/16 21:35 11/21/16 21:35 Lab Results 11/22/16 06:50: TSH 3rd Generation 1.66 11/22/16 06:50: Hemoglobin A1c 4.8 11/22/16 06:50: Triglycerides 87, Cholesterol 204 H, LDL Cholesterol Direct 88, HDL Cholesterol 86 H 11/21/16 23:00: Urine Color Yellow, Urine Appearance Clear, Urine pH 6.5, Ur Specific [place] 1.020, Urine Protein Negative, Urine Glucose (UA) Negative, Urine Ketones Trace H, Urine Blood Negative, Urine Nitrate Negative, Urine Bilirubin Negative, Urine Urobilinogen 1.0 H, Ur Leukocyte Esterase Negative 11/21/16 22:00: Urine Opiates Screen Negative, Urine Methadone Screen Negative, Ur Barbiturates Screen Negative, Ur Phencyclidine Scrn Negative, Ur Amphetamines Screen Negative, U Benzodiazepines Scrn Positive H, U Oth Cocaine Metabols Negative, U Cannabinoids Screen Negative 11/21/16 21:35: Alcohol, Quantitative < 10 11/21/16 21:35: Salicylates < 1 L, Acetaminophen < 10.0 L 11/21/16 21:35: Sodium 142, Potassium 3.6, Chloride 103, Carbon Dioxide 29, Anion Gap 14, BUN 17, Creatinine 0.7, Est GFR ( Amer) > 60, Est GFR (Non- Af Amer) > 60, Random Glucose 101, Calcium 10.0, Total Bilirubin 0.7, AST 20, ALT 25, Alkaline Phosphatase 58, Total Protein 8.1, Albumin 4.5, Globulin 3.6, Albumin/Globulin Ratio 1.3 11/21/16 21:35: WBC 8.9 D, RBC 4.30, Hgb 13.1, Hct 38.7, MCV 90.0, MCH 30.5, MCHC 33.9, RDW 11.9, Plt Count 215, MPV 9.4, Gran % 69.5 H, Lymph % (Auto) 23.4 , [place] % (Auto) 6.8 H, Eos % (Auto) 0.1 L, Baso % (Auto) 0.2, Gran # 6.16, Lymph # 2.1, [place] # 0.6, Eos # 0.0, Baso # 0.02 Vital Signs Temp Pulse Resp BP Pulse Ox 11/25/16 07:45 98.1 F 82 20 110/59 L 11/24/16 16:18 93 H 129/71 11/23/16 16:30 87 139/79 11/23/16 07:00 97.3 F L 75 20 96/43 L 11/22/16 16:00 84 136/73 11/22/16 07:00 98.8 F 67 20 122/62 11/21/16 23:10 77 19 144/59 L 98 11/21/16 20:31 99.1 F 91 H 16 133/85 99 DSM 5 Symptoms Update: Patient is a single 61 y/o female history of depression, anxiety and hallucinations, reportedly 10-20 admissions in the past- most recently 10 years ago, prior SA x 10 years ago, in treatment with Dr. Ayala at [facility] who presented to the ER with complaints of anxiety, depression, poor sleep and suicidal ideation x 3 days. pt was seen and examined at the tx team meeting room, presented to have fair personal hygiene, thought process is circumstantial and tangential. pt c/o inability to sleep, pt was offered to start remeron and taper down Trazodone, pt wa sin agreement. pt said that she feels depressed, hopeless. denied thoughts of harming self or others. Pt said that for her mother will take place on December 03, pt said "I have time to adjust my meds". as per staff pt is compliant with meds, no behavioral issues. pt tolerates meds well, no side effects observed or reported, AIMS 0, no EPS. Impression: schizoaffective. Medication Change: Yes (remeron started, trazodone decreased) Medical Record Reviewed: Yes Consults ordered or reviewed: Medical consult appreciated, see notes for more detailed information Mental Status Examination - Cognitive Function Orientation: Person, Place, Situation Memory: Intact Attention: Poor Concentration: Poor Association: Loose Fund of Knowledge: Poor - Mood Mood: Depressed (I wanted to ), Anxious (better) - Affect Affect: Constricted (more reactive) - Speech Speech: Appropriate - Formal Thought Process Formal Thought Process: Loosening of associations (improving) - Suicidal Ideation Suicidal Ideation: No - Homicidal Ideation Homicidal Ideation: No Goal/Treatment Plan - Goal/Treatment Plan Need for Continued Stay: Remain at risks for inpatient hospitalization, Severe depression anxiety, Discharge may exacerbated symptoms, Severe functional impairment Progress Toward Problem(s) and Goals/Treatment Plan: milieu, structure, supportive therapy Sonata 10 mg at the nighttime for insomnia Trilafon 8 mg will be continued for psychosis Trazodone 200mg will be continued for depression as well as insomnia, plan to wean it off prozac was started 10mg for depression and anxiety remeron 15mg po hs for depression and insomnia xanax 0.5 Mg at the Nighttime for Anxiety As Well As Insomnia Will Be Continued SW evaluation will monitor closely Estimated Date of D/C: 11/28/16 (we will monitor closely)
[2016-11-27] MEDS: Pantoprazole 40 mg EC Tab PO SCH (06:48)
--- NOTE | 2016-11-27 14:36 | PCM.PYCHPN ---
Psychiatric Progress Note - Psychiatric Progress Note Patient seen today, length of contact: 30min Patient Chief Complaint: "do you have hope for me?" Problems Identified/Issues Discussed: Suicide/ homicide prevention, past psychiatric h/o, current psychiatric symptoms , medical problems, risk/benefits and alternatives of medications, medications compliance, coping strategies, substance abuse h/o, relapse prevention, importance of follow up with psychiatrist and therapist, discharge plan. Medical Problems: ?degenerative joint disease consult appreciated Diagnostic Results: 11/21/16 21:35 11/21/16 21:35 Lab Results 11/22/16 06:50: TSH 3rd Generation 1.66 11/22/16 06:50: Hemoglobin A1c 4.8 11/22/16 06:50: Triglycerides 87, Cholesterol 204 H, LDL Cholesterol Direct 88, HDL Cholesterol 86 H 11/21/16 23:00: Urine Color Yellow, Urine Appearance Clear, Urine pH 6.5, Ur Specific [place] 1.020, Urine Protein Negative, Urine Glucose (UA) Negative, Urine Ketones Trace H, Urine Blood Negative, Urine Nitrate Negative, Urine Bilirubin Negative, Urine Urobilinogen 1.0 H, Ur Leukocyte Esterase Negative 11/21/16 22:00: Urine Opiates Screen Negative, Urine Methadone Screen Negative, Ur Barbiturates Screen Negative, Ur Phencyclidine Scrn Negative, Ur Amphetamines Screen Negative, U Benzodiazepines Scrn Positive H, U Oth Cocaine Metabols Negative, U Cannabinoids Screen Negative 11/21/16 21:35: Alcohol, Quantitative < 10 11/21/16 21:35: Salicylates < 1 L, Acetaminophen < 10.0 L 11/21/16 21:35: Sodium 142, Potassium 3.6, Chloride 103, Carbon Dioxide 29, Anion Gap 14, BUN 17, Creatinine 0.7, Est GFR ( Amer) > 60, Est GFR (Non- Af Amer) > 60, Random Glucose 101, Calcium 10.0, Total Bilirubin 0.7, AST 20, ALT 25, Alkaline Phosphatase 58, Total Protein 8.1, Albumin 4.5, Globulin 3.6, Albumin/Globulin Ratio 1.3 11/21/16 21:35: WBC 8.9 D, RBC 4.30, Hgb 13.1, Hct 38.7, MCV 90.0, MCH 30.5, MCHC 33.9, RDW 11.9, Plt Count 215, MPV 9.4, Gran % 69.5 H, Lymph % (Auto) 23.4 , [place] % (Auto) 6.8 H, Eos % (Auto) 0.1 L, Baso % (Auto) 0.2, Gran # 6.16, Lymph # 2.1, [place] # 0.6, Eos # 0.0, Baso # 0.02 Vital Signs Temp Pulse Resp BP Pulse Ox 11/25/16 07:45 98.1 F 82 20 110/59 L 11/24/16 16:18 93 H 129/71 11/23/16 16:30 87 139/79 11/23/16 07:00 97.3 F L 75 20 96/43 L 11/22/16 16:00 84 136/73 11/22/16 07:00 98.8 F 67 20 122/62 11/21/16 23:10 77 19 144/59 L 98 11/21/16 20:31 99.1 F 91 H 16 133/85 99 Temp Pulse Resp BP Pulse Ox 98.2 F 79 20 107/56 L 98 11/27/16 07:24 11/27/16 07:24 11/27/16 07:24 11/27/16 07:24 11/21/16 23:10 DSM 5 Symptoms Update: Patient is a single 61 y/o female history of depression, anxiety and hallucinations, reportedly 10-20 admissions in the past- most recently 10 years ago, prior SA x 10 years ago, in treatment with Dr. Ayala at [facility] (formerly [facility]) who presented to the ER with complaints of anxiety, depression, poor sleep and suicidal ideation x 3 days. pt was seen and examined at the tx team meeting room, presented to have fair personal hygiene, thought process is circumstantial and tangential. pt c/o inability to sleep, pt said that she feels "not myself, I was not willing to go to the groups, usually I am very social, but not today...." pt is in agreement to increase Remeron further, pt is on tapering dose of trazodone, sonata will be d/c, benadryl will be initiated. pt said that she feels depressed, hopeless, pt said "do you have hope for me?". denied thoughts of harming self or others. Pt said that for her mother will take place on December 03, pt said "I have time to adjust my meds". as per staff pt is compliant with meds, no behavioral issues. pt tolerates meds well, no side effects observed or reported, AIMS 0, no EPS. Impression: schizoaffective. Medication Change: Yes (remeron increased, trazodone decreased, sonata d/c, benadryl started) Medical Record Reviewed: Yes Consults ordered or reviewed: Medical consult appreciated, see notes for more detailed information Mental Status Examination - Cognitive Function Orientation: Person, Place, Situation Memory: Intact Attention: Poor Concentration: Poor Association: Loose Fund of Knowledge: Poor - Mood Mood: Depressed (I wanted to ), Anxious (better) - Affect Affect: Constricted (more reactive) - Speech Speech: Appropriate - Formal Thought Process Formal Thought Process: Loosening of associations (improving) - Suicidal Ideation Suicidal Ideation: No - Homicidal Ideation Homicidal Ideation: No Goal/Treatment Plan - Goal/Treatment Plan Need for Continued Stay: Remain at risks for inpatient hospitalization, Severe depression anxiety, Discharge may exacerbated symptoms, Severe functional impairment Progress Toward Problem(s) and Goals/Treatment Plan: milieu, structure, supportive therapy Sonata d/c will give PRN benadryl 50mg hs for insomnia Trilafon 8 mg will be continued for psychosis Trazodone 150mg hs, plan to wean it off prozac icreased to 20mg for depression and anxiety remeron 30mg po hs for depression and insomnia xanax 0.5 Mg at the Nighttime for Anxiety As Well As Insomnia Will Be Continued SW evaluation will monitor closely pulmonology consult r/o sleep apnea Estimated Date of D/C: 12/01/16 (we will monitor closely)
[2016-11-28] MEDS: Pantoprazole 40 mg EC Tab PO SCH (08:22)
--- NOTE | 2016-11-28 12:01 | CON ---
PULMONARY CONSULTATION DATE: 11/27/2016 REFERRING PHYSICIAN: Dr. Galan REASON FOR CONSULTATION: Possible sleep apnea syndrome. HISTORY OF PRESENT ILLNESS: This is a 61-year-old female with past medical history significant for depression, anxiety disorder, diagnosed with bipolar disorder, anxiety, poor sleep, suicidal ideation, presently admitted to the psych floor for continued therapy. She has insomnia, does not know if she snore, daytime sleepy and tired. PAST MEDICAL HISTORY: Again significant for bipolar, degenerative joint disease, and history of mitral valve prolapse. ALLERGIES: METRONIDAZOLE AND TETRACYCLINE. SOCIAL HISTORY: Nonsmoker and nondrinker. MEDICATIONS: She is on Benadryl 50 mg at bedtime p.r.n., trazodone 50 mg at bedtime, Motrin 400 mg every 6 hours p.r.n., perphenazine 8 mg at bedtime, Protonix 40 mg daily, Prozac 20 mg daily, Remeron 30 mg at bedtime, Tylenol p.r.n., and 5 mg at bedtime. REVIEW OF SYSTEMS: No headache and no rhinitis. No daytime sleepy or tired. No nausea and no vomiting. No diarrhea. No leg pain or leg swelling. PHYSICAL EXAMINATION GENERAL: Walking around the [place] in no acute distress. VITAL SIGNS: Temperature is 98, heart rate is 79, respiratory rate is 20, and blood pressure is 107/56. HEENT: Moist mucous membranes. Crowded airway. Mallampati score is 3 to 4. LUNGS: Fair airflow. HEART: S1 and S2. ABDOMEN: Soft and nontender. No organomegaly. EXTREMITIES: There is no edema. NEUROLOGICAL: Awake and alert. Follows simple commands. LABORATORY DATA: Shows hemoglobin of 13.1, hematocrit of 38.7, WBC of 8.9, and platelet count is 215. Sodium is 142, potassium is 3.6, chloride is 103, bicarbonate is 29, BUN is 17, and creatinine is 0.7. Hemoglobin A1c is 4.8. AST is 20, ALT is 25, and alkaline phosphatase is 58. Albumin is 4.5 and cholesterol is 204. TSH is 1.6. Drug screen shows benzodiazepine positive. IMPRESSION AND PLAN: Bipolar disorder with suicidal ideation and insomnia, may have component of sleep apnea syndrome. I agree with Dr. Galan's plan and management. We will suggest to be careful with sedatives. Sleep apnea precautions, keep head 45 degrees. We will suggest a 10 day sleep study as an outpatient upon discharge. Thank you and we will follow with you. Yaima Cash MD
--- NOTE | 2016-11-28 13:56 | PCM.PYCHPN ---
Psychiatric Progress Note - Psychiatric Progress Note Patient seen today, length of contact: 30min Patient Chief Complaint: "do you have hope for me?" Problems Identified/Issues Discussed: Suicide/ homicide prevention, past psychiatric h/o, current psychiatric symptoms , medical problems, risk/benefits and alternatives of medications, medications compliance, coping strategies, substance abuse h/o, relapse prevention, importance of follow up with psychiatrist and therapist, discharge plan. Medical Problems: ?degenerative joint disease consult appreciated Diagnostic Results: 11/21/16 21:35 11/21/16 21:35 Lab Results 11/22/16 06:50: TSH 3rd Generation 1.66 11/22/16 06:50: Hemoglobin A1c 4.8 11/22/16 06:50: Triglycerides 87, Cholesterol 204 H, LDL Cholesterol Direct 88, HDL Cholesterol 86 H 11/21/16 23:00: Urine Color Yellow, Urine Appearance Clear, Urine pH 6.5, Ur Specific [place] 1.020, Urine Protein Negative, Urine Glucose (UA) Negative, Urine Ketones Trace H, Urine Blood Negative, Urine Nitrate Negative, Urine Bilirubin Negative, Urine Urobilinogen 1.0 H, Ur Leukocyte Esterase Negative 11/21/16 22:00: Urine Opiates Screen Negative, Urine Methadone Screen Negative, Ur Barbiturates Screen Negative, Ur Phencyclidine Scrn Negative, Ur Amphetamines Screen Negative, U Benzodiazepines Scrn Positive H, U Oth Cocaine Metabols Negative, U Cannabinoids Screen Negative 11/21/16 21:35: Alcohol, Quantitative < 10 11/21/16 21:35: Salicylates < 1 L, Acetaminophen < 10.0 L 11/21/16 21:35: Sodium 142, Potassium 3.6, Chloride 103, Carbon Dioxide 29, Anion Gap 14, BUN 17, Creatinine 0.7, Est GFR ( Amer) > 60, Est GFR (Non- Af Amer) > 60, Random Glucose 101, Calcium 10.0, Total Bilirubin 0.7, AST 20, ALT 25, Alkaline Phosphatase 58, Total Protein 8.1, Albumin 4.5, Globulin 3.6, Albumin/Globulin Ratio 1.3 11/21/16 21:35: WBC 8.9 D, RBC 4.30, Hgb 13.1, Hct 38.7, MCV 90.0, MCH 30.5, MCHC 33.9, RDW 11.9, Plt Count 215, MPV 9.4, Gran % 69.5 H, Lymph % (Auto) 23.4 , [place] % (Auto) 6.8 H, Eos % (Auto) 0.1 L, Baso % (Auto) 0.2, Gran # 6.16, Lymph # 2.1, [place] # 0.6, Eos # 0.0, Baso # 0.02 Vital Signs Temp Pulse Resp BP Pulse Ox 11/25/16 07:45 98.1 F 82 20 110/59 L 11/24/16 16:18 93 H 129/71 11/23/16 16:30 87 139/79 11/23/16 07:00 97.3 F L 75 20 96/43 L 11/22/16 16:00 84 136/73 11/22/16 07:00 98.8 F 67 20 122/62 11/21/16 23:10 77 19 144/59 L 98 11/21/16 20:31 99.1 F 91 H 16 133/85 99 Temp Pulse Resp BP Pulse Ox 98.2 F 79 20 107/56 L 98 11/27/16 07:24 11/27/16 07:24 11/27/16 07:24 11/27/16 07:24 11/21/16 23:10 DSM 5 Symptoms Update: Patient is a single 61 y/o female history of depression, anxiety and hallucinations, reportedly 10-20 admissions in the past- most recently 10 years ago, prior SA x 10 years ago, in treatment with Dr. Ayala at [facility] who presented to the ER with complaints of anxiety, depression, poor sleep and suicidal ideation x 3 days. pt was seen and examined at the tx team meeting room, presented to have fair personal hygiene, thought process is circumstantial and tangential. pt c/o inability to sleep as per RN report pt slept for 2 hours, pt claimed "it is not possible", pt said that she feels more relaxed. pt said that she feels depressed, hopeless, pt said "do you have hope for me?". denied thoughts of harming self or others. Pt said that for her mother will take place on December 03, pt said "I have time to adjust my meds". as per staff pt is compliant with meds, no behavioral issues. pt tolerates meds well, no side effects observed or reported, AIMS 0, no EPS. Impression: schizoaffective. Medication Change: Yes (remeron increased, trazodone decreased) Medical Record Reviewed: Yes Consults ordered or reviewed: Medical consult appreciated, see notes for more detailed information Mental Status Examination - Cognitive Function Orientation: Person, Place, Situation Memory: Intact Attention: Poor Concentration: Poor Association: Loose Fund of Knowledge: Poor - Mood Mood: Depressed (I wanted to ), Anxious (better) - Affect Affect: Constricted (more reactive) - Speech Speech: Appropriate - Formal Thought Process Formal Thought Process: Loosening of associations (improving) - Suicidal Ideation Suicidal Ideation: No - Homicidal Ideation Homicidal Ideation: No Goal/Treatment Plan - Goal/Treatment Plan Need for Continued Stay: Remain at risks for inpatient hospitalization, Severe depression anxiety, Discharge may exacerbated symptoms, Severe functional impairment Progress Toward Problem(s) and Goals/Treatment Plan: milieu, structure, supportive therapy Sonata d/c will give PRN benadryl 50mg hs for insomnia Trilafon 8 mg will be continued for psychosis Trazodone 100mg hs, plan to wean it off prozac 20mg for depression and anxiety remeron 45mg po hs for depression and insomnia if pt will be not sleeping, will add thorazine and d/c trilafon xanax 0.5 Mg at the Nighttime for Anxiety As Well As Insomnia Will Be Continued SW evaluation will monitor closely pulmonology consult r/o sleep apnea Estimated Date of D/C: 12/01/16 (we will monitor closely)
--- NOTE | 2016-11-28 16:08 | PN ---
PULMONARY PROGRESS NOTE DATE: 11/28/2016 REFERRING PHYSICIAN: Dr. Galan. SUBJECTIVE: The patient is ambulating in the hallway. Night was unremarkable. Documented about 2 hours of sleep or so. No nausea, no vomiting, or diarrhea. No leg pain or leg swelling. OBJECTIVE: GENERAL: In no acute distress. VITAL SIGNS: Temperature is 98, heart rate is 84, respiratory rate is 20, and blood pressure is 112/72. HEENT: Moist mucous membranes. Crowded airway. NECK: Supple. No JVD. LUNGS: Fair airflow with few rhonchi HEART: S1 and S2. ABDOMEN: Soft and nontender. No organomegaly. EXTREMITIES: There is no edema. NEUROLOGICAL: Awake and alert. Follows simple commands. MEDICATIONS: She is on Benadryl 50 mg at bedtime p.r.n., trazodone 100 mg at bedtime, Maalox p.r.n. basis, Motrin 400 mg q.6 hour p.r.n., perphenazine 8 mg at bedtime, Protonix 40 mg daily, Prozac 20 mg daily, Remeron 45 mg at bedtime, Tylenol p.r.n., Xanax 0.5 mg at bedtime. LABORATORY DATA: Reviewed and noted. No new labs available since yesterday. IMPRESSION AND PLAN: Bipolar disorder with suicidal ideation also complaining of insomnia, may have component of sleep apnea syndrome. From pulmonary point of view, continue sedative with close watch for sleep apnea syndrome, keep head elevated 45 degrees. If sleepy, try to avoid sedative at that time. Fall precaution. Thank you and we will follow with you. Yaima Cash MD
[2016-11-29] MEDS: Pantoprazole 40 mg EC Tab PO SCH (06:57)
--- NOTE | 2016-11-29 08:58 | PCM.PYCHPN ---
Psychiatric Progress Note - Psychiatric Progress Note Patient seen today, length of contact: 25 min Patient Chief Complaint: "better" Problems Identified/Issues Discussed: I reviewed recent notes and patient was interviewed at bedside. She remains groomed and well oriented to circumstances. Reports that she is feeling better since her admission and has been tolerating her medications well. Feels hopeful. Mood and anxiety are improving and she denies any side effects or current discomfort/pain. Her thought process is coherent but she still has a tendency to be overinclusive. Patient continues to deny any hallucinations, trilafon has always worked well in this respect. Patient reports that she slept poorly again last night. Staff notes indicate she has been visible on the unit and interacting well with staff and peers. Patient actively participates in groups and appears motivated for improvement. There were no behavioral issues overnight Diagnostic Results: Schizoaffective Disorder Anxiety Disorder NOS R/O PONCHO Medication Change: No ( ) Medical Record Reviewed: Yes Mental Status Examination - Cognitive Function Orientation: Person, Place, Situation Memory: Intact Attention: Poor Concentration: Poor Association: Loose Fund of Knowledge: Poor - Mood Mood: Depressed ("better, hopeful"), Anxious (better) - Affect Affect: Constricted (more reactive) - Speech Speech: Appropriate - Formal Thought Process Formal Thought Process: Loosening of associations (improving), Other ( overinclusive) - Suicidal Ideation Suicidal Ideation: No - Homicidal Ideation Homicidal Ideation: No Goal/Treatment Plan - Goal/Treatment Plan Need for Continued Stay: Remain at risks for inpatient hospitalization, Severe depression anxiety, Discharge may exacerbated symptoms, Severe functional impairment Progress Toward Problem(s) and Goals/Treatment Plan: * group, milieu and supportive tx * Taper trazodone as tolerated * Will hold on switch to thorazine, patient has been stable on trilafon for years. Consider switching xanax to longer acting benzo at night * No new weekend labs * Vitals reviewed and noted below: Selected Entries 11/28/16 11/28/16 07:39 16:00 Temperature 98.2 F Pulse Rate 84 84 Respiratory 20 Rate Blood Pressure 112/72 139/79 Estimated Date of D/C: 12/01/16 (we will monitor closely)
[2016-11-30] MEDS: Pantoprazole 40 mg EC Tab PO SCH (07:23)
--- NOTE | 2016-11-30 09:02 | PCM.PYCHPN ---
Psychiatric Progress Note - Psychiatric Progress Note Patient seen today, length of contact: 25 min Patient Chief Complaint: "better" Problems Identified/Issues Discussed: I reviewed recent notes and patient was interviewed at bedside. She remains groomed and well oriented to circumstances. Reports that she is feeling better since her admission and has been tolerating her medications well. Feels hopeful. Mood and anxiety are improving and she denies any side effects or current discomfort/pain. Her thought process is coherent but she still has a tendency to be overinclusive. Patient continues to deny any hallucinations, trilafon has always worked well in this respect. Patient reports that she slept much better last night (confirmed by nursing notes). Staff notes indicate she has been visible on the unit, pleasant and interacting well with staff and peers. Patient actively participates in groups and appears motivated for improvement. There were no behavioral issues over the weekend. Diagnostic Results: Schizoaffective Disorder Anxiety Disorder NOS R/O PONCHO Medication Change: Yes (trazodone decreased to 50 mg HS on 11/30/16) Medical Record Reviewed: Yes Mental Status Examination - Cognitive Function Orientation: Person, Place, Situation Memory: Intact Attention: Poor Concentration: Poor Association: Loose Fund of Knowledge: Poor - Mood Mood: Depressed ("better, hopeful"), Anxious (better) - Affect Affect: Constricted (more reactive) - Speech Speech: Appropriate - Formal Thought Process Formal Thought Process: Loosening of associations (improving), Other ( overinclusive) - Suicidal Ideation Suicidal Ideation: No - Homicidal Ideation Homicidal Ideation: No Goal/Treatment Plan - Goal/Treatment Plan Need for Continued Stay: Remain at risks for inpatient hospitalization, Severe depression anxiety, Discharge may exacerbated symptoms, Severe functional impairment Progress Toward Problem(s) and Goals/Treatment Plan: * group, milieu and supportive tx * trazodone decreased to 50 mg HS on 11/30/16 * No new weekend labs * Vitals reviewed and noted below: Selected Entries 11/29/16 06:41 Temperature 97.7 F Pulse Rate 84 Respiratory 20 Rate Blood Pressure 110/74 Estimated Date of D/C: 12/01/16 (we will monitor closely)
[2016-12-01 07:51] VITALS: RESP 20
[2016-12-01] MEDS: Pantoprazole 40 mg EC Tab PO SCH (09:29)
--- NOTE | 2016-12-01 16:28 | PCM.PYCHPN ---
Psychiatric Progress Note - Psychiatric Progress Note Patient seen today, length of contact: 30min Patient Chief Complaint: "I do feel better, the only problem I have is insomnia" Problems Identified/Issues Discussed: Suicide/ homicide prevention, past psychiatric h/o, current psychiatric symptoms , medical problems, risk/benefits and alternatives of medications, medications compliance, coping strategies, substance abuse h/o, relapse prevention, importance of follow up with psychiatrist and therapist, discharge plan. Medical Problems: ?degenerative joint disease consult appreciated Diagnostic Results: 11/21/16 21:35 11/21/16 21:35 Lab Results 11/22/16 06:50: TSH 3rd Generation 1.66 11/22/16 06:50: Hemoglobin A1c 4.8 11/22/16 06:50: Triglycerides 87, Cholesterol 204 H, LDL Cholesterol Direct 88, HDL Cholesterol 86 H 11/21/16 23:00: Urine Color Yellow, Urine Appearance Clear, Urine pH 6.5, Ur Specific [place] 1.020, Urine Protein Negative, Urine Glucose (UA) Negative, Urine Ketones Trace H, Urine Blood Negative, Urine Nitrate Negative, Urine Bilirubin Negative, Urine Urobilinogen 1.0 H, Ur Leukocyte Esterase Negative 11/21/16 22:00: Urine Opiates Screen Negative, Urine Methadone Screen Negative, Ur Barbiturates Screen Negative, Ur Phencyclidine Scrn Negative, Ur Amphetamines Screen Negative, U Benzodiazepines Scrn Positive H, U Oth Cocaine Metabols Negative, U Cannabinoids Screen Negative 11/21/16 21:35: Alcohol, Quantitative < 10 11/21/16 21:35: Salicylates < 1 L, Acetaminophen < 10.0 L 11/21/16 21:35: Sodium 142, Potassium 3.6, Chloride 103, Carbon Dioxide 29, Anion Gap 14, BUN 17, Creatinine 0.7, Est GFR ( Amer) > 60, Est GFR (Non- Af Amer) > 60, Random Glucose 101, Calcium 10.0, Total Bilirubin 0.7, AST 20, ALT 25, Alkaline Phosphatase 58, Total Protein 8.1, Albumin 4.5, Globulin 3.6, Albumin/Globulin Ratio 1.3 11/21/16 21:35: WBC 8.9 D, RBC 4.30, Hgb 13.1, Hct 38.7, MCV 90.0, MCH 30.5, MCHC 33.9, RDW 11.9, Plt Count 215, MPV 9.4, Gran % 69.5 H, Lymph % (Auto) 23.4 , [place] % (Auto) 6.8 H, Eos % (Auto) 0.1 L, Baso % (Auto) 0.2, Gran # 6.16, Lymph # 2.1, [place] # 0.6, Eos # 0.0, Baso # 0.02 Vital Signs Temp Pulse Resp BP Pulse Ox 11/25/16 07:45 98.1 F 82 20 110/59 L 11/24/16 16:18 93 H 129/71 11/23/16 16:30 87 139/79 11/23/16 07:00 97.3 F L 75 20 96/43 L 11/22/16 16:00 84 136/73 11/22/16 07:00 98.8 F 67 20 122/62 11/21/16 23:10 77 19 144/59 L 98 11/21/16 20:31 99.1 F 91 H 16 133/85 99 Temp Pulse Resp BP Pulse Ox 98.2 F 79 20 107/56 L 98 11/27/16 07:24 11/27/16 07:24 11/27/16 07:24 11/27/16 07:24 11/21/16 23:10 DSM 5 Symptoms Update: Patient is a single 61 y/o female history of depression, anxiety and hallucinations, reportedly 10-20 admissions in the past- most recently 10 years ago, prior SA x 10 years ago, in treatment with Dr. Ayala at [facility] who presented to the ER with complaints of anxiety, depression, poor sleep and suicidal ideation x 3 days. pt was seen and examined next to the nursing station, presented to have fair personal hygiene, presented much better, pt said that "I am doing better, I am not depressed, I am not suicidal, but I cannot sleep", offered thorazine, pt willing to take it at . denied thoughts of harming self or others. Pt said that for her mother will take place on December 03, pt requested to be d/c tomorrow. as per staff pt is compliant with meds, no behavioral issues. pt tolerates meds well, no side effects observed or reported, AIMS 0, no EPS. Impression: schizoaffective. Medication Change: Yes (trazodone d/c, thorazine hs) Medical Record Reviewed: Yes Consults ordered or reviewed: Medical consult appreciated, see notes for more detailed information Mental Status Examination - Cognitive Function Orientation: Person, Place, Situation Memory: Intact Attention: Poor (imrpovement) Concentration: Poor (improvement) Association: WNL Fund of Knowledge: WNL - Mood Mood: Depressed ("better, hopeful"), Anxious (better) - Affect Affect: Constricted (more reactive) - Speech Speech: Appropriate - Formal Thought Process Formal Thought Process: Loosening of associations (improving), Other ( overinclusive) - Suicidal Ideation Suicidal Ideation: No - Homicidal Ideation Homicidal Ideation: No Goal/Treatment Plan - Goal/Treatment Plan Need for Continued Stay: Remain at risks for inpatient hospitalization, Severe depression anxiety, Discharge may exacerbated symptoms, Severe functional impairment Progress Toward Problem(s) and Goals/Treatment Plan: milieu, structure, supportive therapy Sonata d/c will give PRN benadryl 50mg hs for insomnia Trilafon 8 mg will be continued for psychosis Trazodone d/c thorazine 50mg hs for psychosis and insomnia prozac 20mg for depression and anxiety remeron 45mg po hs for depression and insomnia xanax 0.5 Mg at the Nighttime for Anxiety As Well As Insomnia Will Be Continued SW evaluation will monitor closely pulmonology consult r/o sleep apnea Estimated Date of D/C: 12/02/16 (we will monitor closely)
--- NOTE | 2016-12-01 20:53 | PN ---
PULMONARY PROGRESS NOTE DATE: 12/01/2016 REFERRING PHYSICIAN: Dr. Galan. SUBJECTIVE: The patient is walking around in the [place]. Psychiatry could not sleep well last night. No headache, no rhinitis, no nausea, no vomiting, no diarrhea, no leg pain or leg swelling. PHYSICAL EXAMINATION GENERAL: No acute distress. VITAL SIGNS: Temperature is 98, heart rate is 91, respiratory rate is 20 and blood pressure is 136/81. HEENT: Moist mucous membrane. Crowded airway. NECK: Supple. No JVD. LUNGS: Fair airflow with rhonchi. HEART: S1 and S2. ABDOMEN: Soft and nontender. No organomegaly. EXTREMITIES: There is no edema. NEUROLOGIC: Awake and alert. Follows simple commands. MEDICATIONS: She is on MiraLax 30 mL daily p.r.n., Motrin 400 mg q. 6 hours p.r.n., perphenazine 8 mg at bedtime, Protonix 40 mg daily, Prozac 20 mg daily, Remeron 45 mg at bedtime, at bedtime, Tylenol p.r.n. and Xanax 0.5 mg at bedtime. LABORATORY DATA: Reviewed. No new data is available. IMPRESSION AND PLAN: Bipolar disorder with suicidal ideation, insomnia, may have sleep apnea syndrome. Pulmonary point of view doing okay. Continue sedative, but careful watch for sleep apnea syndrome, fall precaution, gastric prophylaxis, will suggest outpatient attended sleep study. Thank you and we will follow with you.. Yaima Cash MD
[2016-12-02 06:40] VITALS: BP 113/68; PULSE 86; TEMP 98; O2SAT 97
[2016-12-02] MEDS: Pantoprazole 40 mg EC Tab PO SCH (07:01)
--- NOTE | 2016-12-02 14:48 | PCM.PYCHDC ---
Mental Status Examination - Mental Status Examination Orientation: Person, Place, Situation, Time Memory: Intact Mood: Neutral Affect: Broad (and mood congruent) Speech: Appropriate Attention: WNL Concentration: WNL Association: WNL Fund of Knowledge: WNL Formal Thought Process: No Impairment Description of patient's judgement and insight: Pt has improved insight into mental and medical illness, pt was compliant with medications and unit rules and regulations, pt was going to groups, was calm, cooperative, socially appropriate, no behavioral incidents, no agitation, no aggression. Psychotic Thoughts and Behaviors: Pt denied v/a/t hallucinations, denied paranoid ideations, pt does not appear to be psychotic, and thought process is goal directed. Suicidal Ideation: No Current Homicidal Ideation?: No Plan: pt adamantly denied thoughts of harming self or others denied intent or plan. Discharge Summary - Discharge Note Reason for Hospitalization: depression, psychosis, insomnia, suicidal ideation see initial consult for more detailed information Psychiatric History (includes Medical, Family, Personal Hx): h/o depression/ psychosis/anxiety Laboratory Data: 11/21/16 21:35 11/21/16 21:35 Lab Results 11/22/16 06:50: TSH 3rd Generation 1.66 11/22/16 06:50: Hemoglobin A1c 4.8 11/22/16 06:50: Triglycerides 87, Cholesterol 204 H, LDL Cholesterol Direct 88, HDL Cholesterol 86 H 11/21/16 23:00: Urine Color Yellow, Urine Appearance Clear, Urine pH 6.5, Ur Specific [place] 1.020, Urine Protein Negative, Urine Glucose (UA) Negative, Urine Ketones Trace H, Urine Blood Negative, Urine Nitrate Negative, Urine Bilirubin Negative, Urine Urobilinogen 1.0 H, Ur Leukocyte Esterase Negative 11/21/16 22:00: Urine Opiates Screen Negative, Urine Methadone Screen Negative, Ur Barbiturates Screen Negative, Ur Phencyclidine Scrn Negative, Ur Amphetamines Screen Negative, U Benzodiazepines Scrn Positive H, U Oth Cocaine Metabols Negative, U Cannabinoids Screen Negative 11/21/16 21:35: Alcohol, Quantitative < 10 11/21/16 21:35: Salicylates < 1 L, Acetaminophen < 10.0 L 11/21/16 21:35: Sodium 142, Potassium 3.6, Chloride 103, Carbon Dioxide 29, Anion Gap 14, BUN 17, Creatinine 0.7, Est GFR ( Amer) > 60, Est GFR (Non- Af Amer) > 60, Random Glucose 101, Calcium 10.0, Total Bilirubin 0.7, AST 20, ALT 25, Alkaline Phosphatase 58, Total Protein 8.1, Albumin 4.5, Globulin 3.6, Albumin/Globulin Ratio 1.3 11/21/16 21:35: WBC 8.9 D, RBC 4.30, Hgb 13.1, Hct 38.7, MCV 90.0, MCH 30.5, MCHC 33.9, RDW 11.9, Plt Count 215, MPV 9.4, Gran % 69.5 H, Lymph % (Auto) 23.4 , [place] % (Auto) 6.8 H, Eos % (Auto) 0.1 L, Baso % (Auto) 0.2, Gran # 6.16, Lymph # 2.1, [place] # 0.6, Eos # 0.0, Baso # 0.02 Vital Signs Temp Pulse Resp BP Pulse Ox 12/02/16 06:39 98.0 F 86 20 113/68 97 12/01/16 16:44 91 H 136/81 12/01/16 07:50 97.9 F 76 20 120/70 11/30/16 16:36 90 141/78 11/30/16 07:37 98.1 F 75 18 118/61 11/30/16 07:36 98.1 F 75 18 11/29/16 06:41 97.7 F 84 20 110/74 11/28/16 16:00 84 139/79 11/28/16 07:39 98.2 F 84 20 112/72 11/27/16 16:19 93 H 131/73 11/27/16 07:24 98.2 F 79 20 107/56 L 11/26/16 20:53 81 138/71 11/26/16 07:25 97.9 F 91 H 22 110/71 11/26/16 07:24 97.9 F 91 H 22 11/25/16 16:41 99 H 110/65 11/25/16 07:45 98.1 F 82 20 110/59 L 11/24/16 16:18 93 H 129/71 11/23/16 16:30 87 139/79 11/23/16 07:00 97.3 F L 75 20 96/43 L 11/22/16 16:00 84 136/73 11/22/16 07:00 98.8 F 67 20 122/62 11/21/16 23:10 77 19 144/59 L 98 11/21/16 20:31 99.1 F 91 H 16 133/85 99 Consultations:: List each consultation separately and include: 1. Reason for request. 2. Findings. 3. Follow-up Consultations: Medical consult appreciated, see notes for more detailed information Summary of Hospital Course include:: 1. Description of specific treatment plan utilized for patients during their course of treatmen. 2. Summarize the time- course for resolution of acute symptoms and/or regressed behaviors. 3. Describe issues identified and worked on during hospitalization. 4. Describe medication utilized. 5. Describe medical problems identified and treated. 6. Reassessment of suicide risk Summary of Hospital Course: as per 's initial evaluation: Patient is a single 61 y/o female history of depression, anxiety and hallucinations, reportedly 10-20 admissions in the past- most recently 10 years ago, prior SA x 10 years ago, in treatment with Dr. Ayala at [facility] who presented to the ER with complaints of anxiety, depression, poor sleep and suicidal ideation x 3 days. Pt. reported that her main stressor was the recent change in her psychiatric medications approximately one week ago. Patient indicates that Dr. Ayala lowered her trazodone dose from 300 mg to 100 mg and decreased her Xanax dose by 50% from 0.5 mg HS to 0.25 mg HS. Patient reports that Dr. Ayala did this because he felt her doses were too high. She wasn't entirely comfortable with this plan at the time. Patient also indicates that trilafon 8 mg HS was also discontinued upon her request because she hasn't experienced any hallucinations in many years. Patient reports experiencing increased lability, anhedonia, crying spells, anxiety, insomnia and poor appetite since these medication changes. Patient also had passive suicidal thoughts but these have remitted since admission. She tried reaching out to Dr. Ayala but according to patient, he did not call her back. Patient reports feeling quite stable on her prior regimen and would like to resume prior doses. She denies any hallucinations and does not appear to be responding to internal stimuli. Thus far she has been in very good control on the unit. Affect is constricted and thought process is a little scattered and tangential but she is easily redirected. Insight and judgement are fair. OF NOTE: ER report indicated that patient's brother on 11/15/2016 however patient did not offer this information during admission assessment. 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 pt was seen by medical team as well. meds were adjusted pt was stabilized on the following meds: Trilafon was d/c Trazodone d/c thorazine 50mg hs for psychosis and insomnia prozac 20mg for depression and anxiety remeron 45mg po hs for depression and insomnia xanax 0.5 Mg at the Nighttime for Anxiety As Well As Insomnia pt tolerates meds well, no side effects observed or reported. AIMS 0, no EPS. Over the course of this hospitalization pt was attending groups, pt also had medication management, had therapeutic milieu. Overall pt improved significantly, pt's affect became brighter, pt was less depressed, has realistic future oriented plans, pt also does not appear to be psychotic, or anxious, pt was socially appropriate, no behavioral issues, pts insight improved as well and soon pt deemed to be ready for discharge. At the time of the discharge pt denied been depressed, denied thoughts of harming self or others, denied psychotic symptoms, and pt does not appeared to be psychotic, denied been anxious, was considered to pose no threat to self or others, will be following up at [facility], information about follow up appointment, time and address provided to the pt, it is patient responsibility to follow up with outpatient clinic, PMD as well as specialists (see SW note for more detailed information). In case pt will need to obtain results of studies pending at discharge pt was provided with contact information of Psychiatric Inpatient unit [phone] as well as Medical Record Department [phone]. this wrier called in for pt's all meds to the [facility] pharmacy 2weeks supply and one refill of all pt's current meds. (please see medication reconciliation form) Pt was educated about safety plan in case of worsening of symptoms or in case of suicidal or homicidal ideation call 911 or go to the nearest ER, also was educated to take meds as prescribed and stay away from drugs, pt verbalized understanding. - Diagnosis (1) Schizoaffective disorder Current Visit: Yes Status: Acute (2) Bipolar disorder Current Visit: Yes Status: Acute - Final Diagnosis (DSM 5) Condition upon Discharge: STABLE Disposition: HOME/ ROUTINE Follow-up Treatment Plan: At the time of the discharge pt denied been depressed, denied thoughts of harming self or others, denied psychotic symptoms, and pt does not appeared to be psychotic, denied been anxious, was considered to pose no threat to self or others, will be following up at [facility], information about follow up appointment, time and address provided to the pt, it is patient responsibility to follow up with outpatient clinic, PMD as well as specialists (see SW note for more detailed information). In case pt will need to obtain results of studies pending at discharge pt was provided with contact information of Psychiatric Inpatient unit [phone] as well as Medical Record Department [phone]. this wrier called in for pt's all meds to the [facility] pharmacy 2weeks supply and one refill of all pt's current meds. (please see medication reconciliation form) Pt was educated about safety plan in case of worsening of symptoms or in case of suicidal or homicidal ideation call 911 or go to the nearest ER, also was educated to take meds as prescribed and stay away from drugs, pt verbalized understanding. Prescriptions/Medication Reconciliation: Alprazolam [Xanax] 0.5 mg PO HS #14 tab chlorproMAZINE [Thorazine] 50 mg PO HS #14 tab FLUoxetine [Prozac] 20 mg PO DAILY #14 cap Mirtazapine [Remeron] 45 mg PO HS #14 tablet - Smoking Cessation Smoking Cessation Medication prescribed: No Reason for not providing: pt does not smoke - Antipsychotic Medications Pt discharged on 2 or more routine antipsychotic medications: No
== END 2016-12-02 16:45 | disposition home or self-care (01) | DRG 430 ==
LOC: ED 20:13 → ERH 22:59 → PSYC 23:38
PROVIDERS: ADMIT Psychiatry & Neurology Psychiatry; ATTEND Psychiatry & Neurology Psychiatry
DX: F25.9 Schizoaffective disorder, unspecified (principal); R45.851 Suicidal ideations; F31.9 Bipolar disorder, unspecified; F41.9 Anxiety disorder, unspecified; G47.00 Insomnia, unspecified; I34.1 Nonrheumatic mitral (valve) prolapse; M19.90 Unspecified osteoarthritis, unspecified site; Z88.1 Allergy status to other antibiotic agents; Z88.3 Allergy status to other anti-infective agents; Z87.892 Personal history of anaphylaxis; R12 Heartburn; K30 Functional dyspepsia; M19.012 Primary osteoarthritis, left shoulder; G47.30 Sleep apnea, unspecified

== ENCOUNTER 2017-06-23 12:54 | Emergency (ER) | payer MEDICAID, OTHER ==
[2017-06-23 12:54] VITALS: BMI 28.9
[2017-06-23 13:08] VITALS: BP 111/67; PULSE 102; RESP 18; TEMP 99.6; O2SAT 98
--- NOTE | 2017-06-23 13:51 | ED PDOC ---
Arrival/HPI - General Chief Complaint: Abnormal Skin Integrity Time Seen by Provider: 06/23/17 13:29 Historian: Patient - History of Present Illness Narrative History of Present Illness (Text): 06/23/17 1325 Pt p/w + 3 weeks onset of skin reaction at the back of her scalp and at the base of neck after getting her hair dyed 3 weeks ago; pt has seen her PCP 1-2 weeks ago and was prescribed Mupirocin oint, pt had used it for ~ 1 week but without any improvement; pt states the skin reactions continued to itch and irritate her; pt states she had been having problems with these hair dyes for a couple of sessions now; pt states no fever/chills/sweats, no cp/sob/palpitations , no wheezing, no throat tightness, no voice changes, no abd pain, no n/v, no numbness/tingling, no urinary/bowel changes, no other new medications/foods/ detergents/soaps/clothing; pt is here for further eval; pt's without other complaints. Time/Duration: > week (3) Symptom Onset: Gradual Symptom Course: Unchanged Quality: Other (itching) Severity Level: Moderate Activities at Onset: Rest Context: Home Past Medical History - Provider Review Nursing Documentation Reviewed: Yes - Travel History Have you recently traveled outside [place] w/in the past 3 mons?: No - Past History Past History: No Previous - Infectious Disease Hx of Infectious Diseases: None - Tetanus Immunization Tetanus Immunization: Unknown - Reproductive Menopause: Yes - Cardiac Hx Mitral Valve Prolapse: Yes - Psychiatric Hx Anxiety: Yes Hx Bipolar Disorder: Yes Hx Substance Use: No - Surgical History Hx Orthopedic Surgery: Yes (RIGHT FOOT) - Anesthesia Hx Anesthesia: Yes Hx Anesthesia Reactions: No - Suicidal Assessment Feels Threatened In Home Enviroment: No Family/Social History - Physician Review Nursing Documentation Reviewed: Yes Family/Social History: No Known Family HX Smoking Status: Never Smoked Hx Alcohol Use: No Hx Substance Use: No Hx Substance Use Treatment: No Allergies/Home Meds Allergies/Adverse Reactions: Allergies metronidazole Allergy (Verified 06/23/17 13:08) ANAPHYLAXIS Tetracyclines Allergy (Verified 06/23/17 13:08) ANAPHYLAXIS Review of Systems - Review of Systems Constitutional: Normal Eyes: Normal ENT: Normal Respiratory: Normal Cardiovascular: Normal Gastrointestinal: Normal Genitourinary Female: Normal Musculoskeletal: Normal Skin: Rash, Pruritis, Skin Lesions Neurological: Normal Endocrine: Normal Hemo/Lymphatic: Normal Psychiatric: Normal Physical Exam Vital Signs Reviewed: Yes Vital Signs Temp Pulse Resp BP Pulse Ox 06/23/17 13:03 99.6 F 102 H 18 111/67 98 Temperature: Afebrile Blood Pressure: Normal Pulse: Regular Respiratory Rate: Normal Appearance: Positive for: Well-Appearing, Other (uncomfortable, NAD, alert/awake , GCS = 15, oriented x 3, cooperative) Pain Distress: None Mental Status: Positive for: Alert and Oriented X 3 - Systems Exam Head: Present: Atraumatic, Normocephalic Pupils: Present: PERRL Extroacular Muscles: Present: EOMI Conjunctiva: Present: Normal Ears: Present: Normal Mouth: Present: Moist Mucous Membranes, Normal Teeth Pharnyx: Present: Normal Nose (External): Present: Atraumatic Nose (Internal): Present: Normal Inspection Neck: Present: Normal Range of Motion, Trachea Midline, Other (no meningeal signs noted, no midline tenderness, no nuchal rigidity). No: MIDLINE TENDERNESS Respiratory/Chest: Present: Clear to Auscultation, Good Air Exchange, Other (NO W/R/R). No: Respiratory Distress, Accessory Muscle Use Cardiovascular: Present: Regular Rate and Rhythm, Normal S1, S2. No: Murmurs Abdomen: Present: Normal Bowel Sounds, Other (well nourished female, no focal tenderness, no masses/rebound/guarding/rigidity) Back: Present: Normal Inspection. No: CVA Tenderness Upper Extremity: Present: Normal Inspection, Normal ROM, NORMAL PULSES, Neurovascularly Intact, Capillary Refill < 2s Lower Extremity: Present: Normal Inspection, NORMAL PULSES, Normal ROM, Neurovascularly Intact, Capillary Refill < 2 s Neurological: Present: GCS=15, CN II-XII Intact, Speech Normal Skin: Present: Warm, Normal Color, Other (noted posterior scalp/base of the neck , right sided, with extensive raised skin lesions, with faint erythematous skin base, + puritic, no discharge/pus/bleeding noted; no Nikosky's sign, no vesicles /pustules/bullaes noted; no blisters noted) Psychiatric: Present: Alert, Oriented x 3 Medical Decision Making ED Course and Treatment: 06/23/17 1326 Impression: likely contact dermatitis i have consider all the differential diagnosis regarding pt's chief medical complaints/clinical findings, including but are not limited to: skin reaction; unlikely infected A/P: skin lesions/puritis - steroid cream - supportive care - observe 06/23/17 1335 pt is encouraged not to use any more hair dyes pt is made aware of her medical results pt will f/u as directed pt will be discharged home Re-evaluation Time: 13:30 Reassessment Condition: Unchanged Disposition/Present on Arrival - Present on Arrival Any Indicators Present on Arrival: No History of DVT/PE: No History of Uncontrolled Diabetes: No Urinary Catheter: No History of Decub. Ulcer: No History Surgical Site Infection Following: None - Disposition Have Diagnosis and Disposition been Completed?: Yes Diagnosis: Contact dermatitis Disposition: HOME/ ROUTINE Disposition Time: 13:45 Patient Plan: Discharge Condition: STABLE Discharge Instructions (ExitCare): Contact Dermatitis (DC) Print Language: KHMER Additional Instructions: Make sure to see your doctor in 1-2 days AVOID new hair dyes DRINK PLENTY OF FLUIDS take your medications as prescribed RETURN TO ED IF worse pain, cant breath, persistent vomiting, high fever >101- 102 for hours, altered behavior, unable to urinate, heavy/persistent bleeding, passing out, chest pain, or other medical emergencies Prescriptions: Hydrocortisone/Aloe Vera [Hydrocortisone-Aloe 1% Cream] 28 gm TP BID 7 Days #1 cream..g. Referrals: Ajit Ortiz MD [Staff Provider] - Follow up with primary Sharda Storey MD [Staff Provider] - Follow up with primary Forms: [employer] (Bel[place]ian)
== END 2017-06-23 13:51 | disposition home or self-care (01) ==
LOC: ED 12:54
DX: L25.9 Unspecified contact dermatitis, unspecified cause (principal)

== ENCOUNTER 2017-12-09 14:39 | Observation (INO) | payer OTHER ==
[2017-12-09 15:15] VITALS: BMI 32.4
--- NOTE | 2017-12-09 15:24 | ED PDOC ---
Arrival/HPI - General Historian: Patient - History of Present Illness Time/Duration: Other (see hpi) Context: Home <Alexandria Hayes - Last Filed: 12/09/17 20:48> <Inocente Tovar - Last Filed: 12/09/17 21:02> - General Chief Complaint: Back Pain Time Seen by Provider: 12/09/17 15:04 - History of Present Illness Narrative History of Present Illness (Text): 12/09/17 15:05 This 62 yo female with a pmh anxiety, presents to this emergency department complaining of feeling dizzy at 11 pm last night. Patient stated she developed a right lower back pain while laying on her couch. She stated after standing up , she felt like she was going to "pass out'. Patient denies shortness of breath , chest pain, abdominal pain, ALBERT, diplopia, dysarthria, focal deficits, abnormal gait, fever, n/v, or urinary symptoms. (Alexandria Hayes) Past Medical History - Provider Review Nursing Documentation Reviewed: Yes - Past History Past History: No Previous - Infectious Disease Hx of Infectious Diseases: None - Tetanus Immunization Tetanus Immunization: Unknown - Cardiac Hx Cardiac Disorders: Yes Hx Mitral Valve Prolapse: Yes - Pulmonary Hx Respiratory Disorders: No - Neurological Hx Neurological Disorder: No - HEENT Hx HEENT Disorder: No - Renal Hx Renal Disorder: No - Endocrine/Metabolic Hx Endocrine Disorders: No - Hematological/Oncological Hx Blood Disorders: No - Integumentary Hx Dermatological Disorder: No - Musculoskeletal/Rheumatological Hx Musculoskeletal Disorders: No - Gastrointestinal Hx Gastrointestinal Disorders: No - Genitourinary/Gynecological Hx Genitourinary Disorders: No - Psychiatric Hx Psychophysiologic Disorder: Yes Hx Anxiety: Yes Hx Bipolar Disorder: Yes Hx Substance Use: No - Surgical History Hx Orthopedic Surgery: Yes (RIGHT FOOT) - Anesthesia Hx Anesthesia: Yes Hx Anesthesia Reactions: No - Suicidal Assessment Feels Threatened In Home Enviroment: No <Alexandria Hayes - Last Filed: 12/09/17 20:48> Family/Social History - Physician Review Nursing Documentation Reviewed: Yes Family/Social History: Other (noncontributory) Smoking Status: Never Smoked Hx Alcohol Use: No Hx Substance Use: No Hx Substance Use Treatment: No <Alexandria Hayes - Last Filed: 12/09/17 20:48> Allergies/Home Meds <Alexandria Hayes - Last Filed: 12/09/17 20:48> <Inocente Tovar - Last Filed: 12/09/17 21:02> Allergies/Adverse Reactions: Allergies metronidazole Allergy (Verified 12/09/17 15:15) ANAPHYLAXIS Tetracyclines Allergy (Verified 12/09/17 15:15) ANAPHYLAXIS Review of Systems - Review of Systems Constitutional: Normal. absent: Fatigue, Weight Change, Fevers, Night Sweats Eyes: Normal. absent: Vision Changes ENT: Normal. absent: Hearing Changes, Sore Throat, Rhinorrhea Respiratory: Normal. absent: SOB, Cough, Sputum, Wheezing Cardiovascular: Normal. absent: Chest Pain, Palpitations, Edema, Calf Pain, ELIZABETH , Orthopnea, Syncope Gastrointestinal: Normal. absent: Abdominal Pain, Constipation, Diarrhea, Nausea, Vomiting Genitourinary Female: Normal. absent: Dysuria, Frequency, Hematuria, Urine Output Changes, Vaginal Bleeding, Vaginal Discharge Musculoskeletal: Normal Skin: Normal. absent: Rash Neurological: Dizziness. absent: Headache, Focal Weakness, Gait Changes, Speech Changes, Facial Droop, Disequilibrium Endocrine: Normal Hemo/Lymphatic: Normal Psychiatric: Normal. absent: Anxiety, Depression, Suicidal Ideation <Alexandria Hayes - Last Filed: 12/09/17 20:48> Physical Exam Temperature: Afebrile Blood Pressure: Normal Pulse: Regular Respiratory Rate: Normal Appearance: Positive for: Well-Appearing, Non-Toxic, Comfortable Pain Distress: None Mental Status: Positive for: Alert and Oriented X 3 - Systems Exam Head: Present: Atraumatic, Normocephalic Pupils: Present: PERRL Extroacular Muscles: Present: EOMI Conjunctiva: Present: Normal Mouth: Present: Moist Mucous Membranes Neck: Present: Normal Range of Motion Respiratory/Chest: Present: Clear to Auscultation, Good Air Exchange. No: Respiratory Distress, Accessory Muscle Use Cardiovascular: Present: Regular Rate and Rhythm, Normal S1, S2. No: Murmurs Abdomen: No: Tenderness, Distention, Peritoneal Signs, Rebound, Guarding Back: Present: Normal Inspection. No: CVA Tenderness, Paraspinal Tenderness, Pain with Leg Raise Upper Extremity: Present: Normal Inspection, Normal ROM. No: Cyanosis, Edema Lower Extremity: Present: Normal Inspection, Normal ROM. No: Edema Neurological: Present: GCS=15, CN II-XII Intact, Speech Normal, Motor Func Grossly Intact, Normal Sensory Function, Normal Cerebellar Funct, Gait Normal, Memory Normal Skin: Present: Warm, Dry, Normal Color. No: Rashes Psychiatric: Present: Alert, Oriented x 3, Normal Insight, Normal Concentration <Hayes,Nahim P - Last Filed: 12/09/17 20:48> Vital Signs Temp Pulse Resp BP Pulse Ox 12/09/17 18:44 98.3 F 90 18 108/77 98 12/09/17 15:17 98.3 F 80 18 125/84 100 Medical Decision Making Re-evaluation Time: 20:22 Reassessment Condition: Re-examined, Improved - Lab Interpretations I have reviewed the lab results: Yes Interpretation: Abnormal lab values - EKG Interpretation Interpreted by ED Physician: Yes (NSR @ 89 bpm. Normal interval. NO ST changes ) Type: 12 lead EKG <Alexandria Hayes - Last Filed: 12/09/17 20:48> <Inocente Tovar - Last Filed: 12/09/17 21:02> ED Course and Treatment: 12/09/17 20:00 I spoke with biomedical equipment tech Arabella. He stated Dr. Suman Sanchez is the house doctor for admission. 12/09/17 20:[address] Suman Sanchez regarding patient history of pre-syncope, hypokalemia, hypomagnesemia, hypocalcemia. She agrred with plan for observation, on telemetry. (Hayes,Nahim P) - Lab Interpretations Lab Results: 12/09/17 18:26 12/09/17 18:26 Lab Results 12/09/17 18:26: Salicylates < 1 L, Acetaminophen < 10.0 L 12/09/17 18:26: Sodium 145, Potassium 2.6 L* D, Chloride 119 H, Carbon Dioxide 17 L, Anion Gap 12, BUN 6 L, Creatinine 0.4 L, Est GFR ( Amer) > 60, Est GFR (Non-Af Amer) > 60, Random Glucose 72, Calcium 6.2 L*, Magnesium 1.2 L, Total Bilirubin 0.4, AST 14, ALT 32, Alkaline Phosphatase 65, Lactate Dehydrogenase 271 L, Total Creatine Kinase 101, Troponin I < 0.01, Total Protein 5.6 L, Albumin 2.8 L, Globulin 2.8, Albumin/Globulin Ratio 1.0 L 12/09/17 18:26: WBC 7.5, RBC 3.54, Hgb 10.5 L, Hct 31.2 L, MCV 88.1, MCH 29.7, MCHC 33.7, RDW 12.5, Plt Count 189, MPV 9.1, Gran % 67.3, Lymph % (Auto) 26.7, [place] % (Auto) 5.9, Eos % (Auto) 0.0 L, Baso % (Auto) 0.1, Gran # 5.06, Lymph # ( Auto) 2.0, [place] # (Auto) 0.4, Eos # (Auto) 0.0, Baso # (Auto) 0.01 12/09/17 17:25: Urine Opiates Screen Negative, Urine Methadone Screen Negative, Ur Barbiturates Screen Negative, Ur Phencyclidine Scrn Negative, Ur Amphetamines Screen Negative, U Benzodiazepines Scrn Positive H, U Oth Cocaine Metabols Negative, U Cannabinoids Screen Negative 12/09/17 17:25: Urine Color Yellow, Urine Appearance Clear, Urine pH 6.0, Ur Specific [place] 1.010, Urine Protein Negative, Urine Glucose (UA) Negative, Urine Ketones Negative, Urine Blood Negative, Urine Nitrate Negative, Urine Bilirubin Negative, Urine Urobilinogen 0.2, Ur Leukocyte Esterase Negative - RAD Interpretation Narrative RAD Interpretations (Text): 12/09/17 16:39 Date of service: 12/09/2017 HISTORY: dizziness COMPARISON: 11/21/2016 FINDINGS: LUNGS: No active pulmonary disease. PLEURA: No significant pleural effusion identified, no pneumothorax apparent. CARDIOVASCULAR: No radiographic findings to suggest acute or significant cardiovascular disease. OSSEOUS STRUCTURES: No significant abnormalities. VISUALIZED UPPER ABDOMEN: Normal. OTHER FINDINGS: None. IMPRESSION: No active disease. No significant interval change compared to the prior examination(s). 12/09/17 20:48 FINDINGS: Brain: No intracranial hemorrhage. No evidence of evolved territorial infarct or cerebral edema. No mass effect or midline shift. Ventricles: Unremarkable. No ventriculomegaly. Bones/joints: No acute osseous abnormality. Soft tissues: No soft tissue swelling. Sinuses: Visualized paranasal sinuses are clear. Mastoid air cells: Mastoid air cells are well-aerated. IMPRESSION: No acute intracranial findings (Hayes,Nahim P) Radiology Orders: 12/09/17 15:26 CHEST PORTABLE [RAD] Stat 12/09/17 18:49 HEAD W/O CONTRAST [CT] Stat - Medication Orders Current Medication Orders: Potassium Chloride (Potassium Chloride 10 Meq/100 Ml) 10 meq in 100 mls @ 50 mls/hr IVPB Q2H JIMMIE Stop: 12/09/17 23:29 Discontinued Medications Calcium Carbonate (Oscal) 500 mg PO ONCE ONE Stop: 12/09/17 20:44 Sodium Chloride (Sodium Chloride 0.9%) 1,000 mls @ 999 mls/hr IV .Q1H1M STA Stop: 12/09/17 16:27 Last Admin: 12/09/17 17:28 Dose: 999 mls/hr eMAR Start Stop Document 12/09/17 17:28 OCS (Rec: 12/09/17 17:28 OCS [id number]) Intravenous Solution Start Date 12/09/17 Start Time 17:28 End Date 12/09/17 End time 18:29 Total Infusion Time 61 Magnesium 2 gm/50 ml NS (Magnesium Sulfate 2 Gm/50 Ml Ns) 2 gm in 50 mls @ 50 mls/hr IVPB ONCE ONE Stop: 12/09/17 20:49 Last Admin: 12/09/17 20:01 Dose: 50 mls/hr eMAR Start Stop Document 12/09/17 20:01 OCS (Rec: 12/09/17 20:01 OCS [id number]) Intravenous Solution Start Date 12/09/17 Start Time 20:01 End Date 12/09/17 End time 20:31 Total Infusion Time 30 Ketorolac Tromethamine (Toradol) 15 mg IVP STAT STA Stop: 12/09/17 18:48 Last Admin: 12/09/17 19:53 Dose: 15 mg MAR Pain Assessment Document 12/09/17 19:53 OCS (Rec: 12/09/17 19:54 OCS [id number]) Pain Reassessment Is this a pain reassessment? No Sleep Is patient sleeping during reassessment? No Presence of Pain Presence of Pain Yes Pain Scale Used Pain Scale Used Numeric Location Left, Right or Bilateral Right Upper or Lower Lower Pain Location Body Site Back Description Description Intermittent Aggravating Factors ADL's IVP Administration Document 12/09/17 19:53 OCS (Rec: 12/09/17 19:54 OCS [id number]) Charges for Administration # of IVP Administrations 1 Meclizine HCl (Antivert) 50 mg PO STAT STA Stop: 12/09/17 15:29 Last Admin: 12/09/17 17:28 Dose: 50 mg Potassium Chloride (K-Dur 20 Meq Er Tab) 60 meq PO STAT STA Stop: 12/09/17 19:19 Last Admin: 12/09/17 19:53 Dose: 60 meq - PA / DIRECTOR CLIENT / Resident Statement / has reviewed & agrees with the documentation as recorded. / has examined the patient and agrees with the treatment plan. <Inocente Tovar - Last Filed: 12/09/17 21:02> Disposition/Present on Arrival - Present on Arrival Any Indicators Present on Arrival: No History of DVT/PE: No History of Uncontrolled Diabetes: No Urinary Catheter: No History of Decub. Ulcer: No History Surgical Site Infection Following: None - Disposition Have Diagnosis and Disposition been Completed?: Yes Disposition Time: 20:15 Patient Plan: Admission <Alexandria Hayes - Last Filed: 12/09/17 20:48> <Inocente Tovar - Last Filed: 12/09/17 21:02> - Disposition Diagnosis: Hypokalemia, Pre-syncope, Hypomagnesemia Disposition: HOSPITALIZED Patient Problems: Current Active Problems Problem Status Onset Hypokalemia Acute Hypomagnesemia Acute Pre-syncope Acute Condition: STABLE
[2017-12-09] MEDS ORDERED: Sodium Chloride 0.9% 1,000 ML IV STA (15:27)
--- NOTE | 2017-12-09 16:07 | RAD ---
Date of service: 12/09/2017 HISTORY: dizziness COMPARISON: 11/21/2016 FINDINGS: LUNGS: No active pulmonary disease. PLEURA: No significant pleural effusion identified, no pneumothorax apparent. CARDIOVASCULAR: No radiographic findings to suggest acute or significant cardiovascular disease. OSSEOUS STRUCTURES: No significant abnormalities. VISUALIZED UPPER ABDOMEN: Normal. OTHER FINDINGS: None. IMPRESSION: No active disease. No significant interval change compared to the prior examination(s).
[2017-12-09 17:57] LABS: URINE BILIRUBIN NEGATIVE (NEGATIVE); URINE BLOOD NEGATIVE (NEGATIVE); URINE GLUCOSE (UA) NEGATIVE (NEGATIVE); URINE LEUKOCYTE ESTERASE NEGATIVE Leu/uL (NEGATIVE); URINE PROTEIN NEGATIVE mg/dL (<30 mg/dL); URINE UROBILINOGEN 0.2 E.U./dL (<1 E.U./dL)
[2017-12-09 17:59] LABS: URINE APPEARANCE CLEAR (CLEAR); URINE COLOR YELLOW (YELLOW)
[2017-12-09 18:13] LABS: BARBITURATES, UR NEGATIVE (NEGATIVE); BENZODIAZEPINES, UR POSITIVE (NEGATIVE); OPIATES, UR NEGATIVE (NEGATIVE); PHENCYCLIDINE, UR NEGATIVE (NEGATIVE)
[2017-12-09 19:08] LABS: BASO % 0.1 % (0.0-3.0); GRAN # 5.06 (1.4-6.5); GRAN % 67.3 % (50.0-68.0); HEMOGLOBIN 10.5 g/dL (12.0-16.0); LYMPH % 26.7 % (22.0-35.0); MEAN CELL VOLUME 88.1 fl (80.0-105.0); MEAN CORPUSCULAR HEMOGLOBIN 29.7 pg (25.0-35.0); MEAN CORPUSCULAR HGB CONC 33.7 g/dl (31.0-37.0); MEAN PLATELET VOLUME 9.1 fl (7.0-11.0); MONO # 0.4 (0.1-0.6); MONO % 5.9 % (1.0-6.0); RBC 3.54 10^6/uL (3.5-6.1); RED CELL DISTRIBUTION WIDTH 12.5 % (11.5-14.5); WHITE BLOOD COUNT 7.5 10^3/ul (4.5-11.0)
[2017-12-09 19:09] LABS: BASO # 0.01 K/mm3 (0.0-2.0)
[2017-12-09 19:10] LABS: BLOOD UREA NITROGEN 6 mg/dL (7-21); GFR AFRICAN-AMERICAN > 60; GFR NON-AFRICAN AMERICAN > 60
[2017-12-09 19:11] LABS: ALBUMIN 2.8 g/dL (3.0-4.8); ALT/SGPT 32 U/L (7-56); AST/SGOT 14 U/L (14-36)
[2017-12-09 19:14] LABS: CALCIUM 6.2 mg/dL (8.4-10.5)
[2017-12-09 19:17] LABS: ACETAMINOPHEN < 10.0 ug/ml (10.0-20.0); SALICYLATE < 1 mg/dL (2.0-20.0)
[2017-12-09 19:18] LABS: TROPONIN I < 0.01 ng/mL
[2017-12-09] MEDS ORDERED: Potassium Chloride 20 mEq ER Tab PO STA (19:18)
[2017-12-09] MEDS ORDERED: Magnesium 2 gm/50 ml NS 2 GM/50 ML BAG IVPB ONE (19:50)
--- NOTE | 2017-12-09 21:28 | CP.PCM.HP ---
<Arabella Bowden - Last Filed: 12/10/17 22:51> History of Present Illness - History of Present Illness History of Present Illness: Arabella Bowden D.O. PGY-1, HISTORY & PHYSICAL NOTE FOR HOSPITALIST TEAM CC: Presyncope, weakness, sent to ED from Dr. [facility]. 62F with a PMH of anxiety, depression, bipolar disorder presents to ED for with complaints of "feelings of passing out" and weakness that she had started feeling last night. She denies any associated dizziness, vision changes, gustatory changes and hallucinations. She reports she had felt very tired and had a sensation of "passing out" since last night. She reports that she didn't lose consciousness, and her sensation was relieved after she ate chocolate and a bagel and rested in bed. Pt admits to poor diet with one meal a day with very little fluid or electrolyte consumption. She denies history of alcohol consumption. Daughter who is present at bedside reports her mother has a poor diet. She reports that shes had similar episodes before, that had self-resolved with rest. She had visited her PMD, Dr. Storey this am, who had sent her to the ED. Upon interview, patient was feeling better since the previous night, with no acute complaints. She reports improvement after receiving IV fluids in the ED. She denies fevers, chills, nausea, vomiting, headache, dizziness, chest pain , palpitations, constipation, diarrhea, dysuria, hematuria, suicidal ideations, hallucinations. PMD: Dr. Storey PMH: depression, anxiety, bipolar disorder PSH: denies SH: denies alcohol, drug, tobacco use Allergies: metronidazole, tetracycline Meds: Mirtazapine, Fluoxetine, Alprazolam, Chlorpromazine Present on Admission - Present on Admission Any Indicators Present on Admission: No Review of Systems - Review of Systems All systems: reviewed and no additional remarkable complaints except (as per HPI , otherwise negative) Past Patient History - Infectious Disease Hx of Infectious Diseases: None - Tetanus Immunizations Tetanus Immunization: Unknown - Past Social History Smoking Status: Never Smoked - CARDIAC Hx Cardiac Disorders: Yes Hx Mitral Valve Prolapse: Yes - PULMONARY Hx Respiratory Disorders: No - NEUROLOGICAL Hx Neurological Disorder: No - HEENT Hx HEENT Problems: No - RENAL Hx Chronic Kidney Disease: No - ENDOCRINE/METABOLIC Hx Endocrine Disorders: No - HEMATOLOGICAL/ONCOLOGICAL Hx Blood Disorders: No - INTEGUMENTARY Hx Dermatological Problems: No - MUSCULOSKELETAL/RHEUMATOLOGICAL Hx Musculoskeletal Disorders: No - GASTROINTESTINAL Hx Gastrointestinal Disorders: No - GENITOURINARY/GYNECOLOGICAL Hx Genitourinary Disorders: No - PSYCHIATRIC Hx Psychophysiologic Disorder: Yes Hx Anxiety: Yes Hx Bipolar Disorder: Yes Hx Substance Use: No - SURGICAL HISTORY Hx Orthopedic Surgery: Yes (RIGHT FOOT) - ANESTHESIA Hx Anesthesia: Yes Hx Anesthesia Reactions: No Meds Home Medications: Home Medication List Medication Instructions Recorded Confirmed Type Calcium Carbonate [Calcium] 500 mg PO DAILY #30 tablet 12/10/17 Rx Magnesium Oxide [Magnesium] 400 mg PO DAILY #30 capsule 12/10/17 Rx Allergies/Adverse Reactions: Allergies Allergy/AdvReac Type Severity Reaction Status Date / Time metronidazole Allergy ANAPHYLAXIS Verified 12/09/17 15:15 Tetracyclines Allergy ANAPHYLAXIS Verified 12/09/17 15:15 Physical Exam - Constitutional Appears: Well, Non-toxic, No Acute Distress - Head Exam Head Exam: NORMAL INSPECTION - Eye Exam Eye Exam: EOMI, Normal appearance - ENT Exam ENT Exam: Mucous Membranes Moist, Normal Exam - Neck Exam Neck exam: Positive for: Normal Inspection. Negative for: Meningismus - Respiratory Exam Respiratory Exam: Clear to Auscultation Bilateral, NORMAL BREATHING PATTERN - Cardiovascular Exam Cardiovascular Exam: REGULAR RHYTHM, +S1, +S2 - GI/Abdominal Exam GI & Abdominal Exam: Normal Bowel Sounds, Soft - Extremities Exam Extremities exam: Positive for: normal inspection. Negative for: calf tenderness - Neurological Exam Neurological exam: Alert, CN II-XII Intact, Oriented x3 Additional comments: 5/5 BL BI/TRI/DELT/HF/KF/PF/DF/EHL (-) [place] sign (-) Trousseau sign - Psychiatric Exam Psychiatric exam: Normal Affect, Normal Mood - Skin Skin Exam: Dry, Warm Results - Vital Signs Recent Vital Signs: Last Vital Signs Temp 98.3 F 12/09/17 21:11 Pulse 88 12/09/17 21:11 Resp 18 12/09/17 21:11 BP 124/66 12/09/17 21:11 Pulse Ox 99 12/09/17 21:11 - Labs Result Diagrams: 12/09/17 18:26 12/10/17 00:50 Assessment & Plan - Assessment and Plan (Free Text) Assessment: 62F with a PMH of anxiety, depression, bipolar disorder admitted for presyncope , hypokalemia, hypocalcemia Plan: Presyncope Likely secondary to malnutrition/hypoglycemia CT head 12/09 showed no acute findings EKG showed mild T wave flattening, QTc: 430 F/u urine Na, K, Cr, Cl levels Electrolyte abnormalities Likely 2/2 poor intake Start KCl 40meq PO Q4H Start NS w/60mEQ Additive @115ml/hr Corrected calcium: 7.2 Given 500mg calcium carbonate F/u urine potassium, Mg, Phosphorus, CMP, PTHrP, urine calcium Hx Bipolar disorder No symptoms at this time Continue home chlorpromazine Hx Anxiety Continue home xanax Hx Depression Continue home fluoxetine Continue home mirtazepine GI/DVT ppx: Protonix/Lovenox Case discussed with and reviewed with attending physician, Dr. Sanchez - Date & Time Date: 12/10/17 Time: 05:54 <Tiffany Sanchez - Last Filed: 12/11/17 22:25> Results - Vital Signs Recent Vital Signs: Last Vital Signs Temp 98.6 F 12/10/17 11:50 Pulse 89 12/10/17 14:00 Resp 18 12/10/17 11:50 BP 126/69 12/10/17 11:50 Pulse Ox 93 L 12/10/17 06:00 - Labs Result Diagrams: 12/10/17 05:15 12/10/17 05:15 Labs: Laboratory Results - last 24 hr 12/10/17 05:15 PTH Intact Whole Molec 38
[2017-12-09] MEDS ORDERED: Hydrocortisone 1% Cream (30 GM) TOP SCH (23:15)
[2017-12-10 05:09] LABS: CALCIUM,RANDOM URINE 4.3 mg/dL
[2017-12-10] MEDS ORDERED: Potassium Chloride 40 mEq/30 ml LIQ UD PO SCH (06:00)
[2017-12-10 06:01] VITALS: O2SAT 93
[2017-12-10 06:18] LABS: BASO # 0.01 K/mm3 (0.0-2.0); BASO % 0.1 % (0.0-3.0); EOS % 0.1 % (1.5-5.0); GRAN # 4.05 (1.4-6.5); GRAN % 56.6 % (50.0-68.0); HEMOGLOBIN 11.4 g/dL (12.0-16.0); LYMPH # 2.7 (1.2-3.4); LYMPH % 37.3 % (22.0-35.0); MEAN CELL VOLUME 87.5 fl (80.0-105.0); MEAN CORPUSCULAR HEMOGLOBIN 29.1 pg (25.0-35.0); MEAN CORPUSCULAR HGB CONC 33.2 g/dl (31.0-37.0); MEAN PLATELET VOLUME 9.1 fl (7.0-11.0); MONO # 0.4 (0.1-0.6); MONO % 5.9 % (1.0-6.0); RBC 3.92 10^6/uL (3.5-6.1); RED CELL DISTRIBUTION WIDTH 12.7 % (11.5-14.5); WHITE BLOOD COUNT 7.2 10^3/ul (4.5-11.0)
[2017-12-10 06:44] LABS: ALB/GLOB RATIO 1.2 (1.1-1.8); ALBUMIN 3.6 g/dL (3.0-4.8); ALT/SGPT 28 U/L (7-56); AST/SGOT 31 U/L (14-36); BLOOD UREA NITROGEN 8 mg/dL (7-21); CALCIUM 8.9 mg/dL (8.4-10.5); GFR AFRICAN-AMERICAN > 60; GFR NON-AFRICAN AMERICAN > 60
[2017-12-10 06:58] LABS: IRON 81 ug/dL (45-180)
[2017-12-10 07:07] LABS: % IRON SATURATION 29 % (20-55); TOTAL IRON BINDING CAPACITY 277 ug/dL (265-497)
--- NOTE | 2017-12-10 07:42 | CT ---
Date of service: 12/09/2017 PROCEDURE: CT HEAD WITHOUT CONTRAST. HISTORY: dizzy COMPARISON: None available. TECHNIQUE: Axial computed tomography images were obtained through the head/brain without intravenous contrast. Radiation dose: Total exam DLP = 750 mGy-cm. This CT exam was performed using one or more of the following dose reduction techniques: Automated exposure control, adjustment of the mA and/or kV according to patient size, and/or use of iterative reconstruction technique. FINDINGS: HEMORRHAGE: No intracranial hemorrhage. BRAIN: No mass effect or edema. No atrophy or chronic microvascular ischemic changes. VENTRICLES: Unremarkable. No hydrocephalus. CALVARIUM: Unremarkable. PARANASAL SINUSES: Unremarkable as visualized. No significant inflammatory changes. MASTOID AIR CELLS: Unremarkable as visualized. No inflammatory changes. OTHER FINDINGS: The report concurs with the preliminary [facility] report IMPRESSION: No acute intracranial findings
[2017-12-10] MEDS ORDERED: Enoxaparin 40 mg Syringe SC SCH (10:00)
[2017-12-10 11:51] VITALS: BP 126/69; RESP 18; TEMP 98.6
--- NOTE | 2017-12-10 15:05 | CARD ---
APPROVED REPORT Date of service: 12/10/2017 EKG Measurement Heart [id number] ID [id number] <Conclusion> Normal sinus rhythm with sinus arrhythmia Normal ECG
--- NOTE | 2017-12-10 15:09 | CARD ---
APPROVED REPORT Date of service: 12/09/2017 EKG Measurement Heart [id number] <Conclusion> Normal sinus rhythm Nonspecific T wave abnormality Abnormal ECG
[2017-12-10 17:07] LABS: FOLATE 12.7 ng/mL
[2017-12-10 19:52] VITALS: PULSE 89
--- NOTE | 2017-12-10 23:48 | CP.PCM.DIS ---
Provider - Provider Date of Admission: 12/09/17 20:12 Attending physician: Yaima Doe MD Primary care physician: Yaima Roblero Time Spent in preparation of Discharge (in minutes): 40 Diagnosis - Discharge Diagnosis (1) Pre-syncope Status: Acute Priority: High (2) Hypomagnesemia Status: Acute Priority: High (3) Hypocalcemia Status: Acute Priority: High (4) Hypokalemia Status: Acute Priority: Medium (5) Anxiety Status: Chronic Priority: Low (6) Bipolar disorder Status: Chronic Priority: Low Hospital Course - Lab Results Lab Results: Most Recent Lab Values WBC 7.2 10^3/ul (4.5-11.0) 12/10/17 05:15 RBC 3.92 10^6/uL (3.5-6.1) 12/10/17 05:15 Hgb 11.4 g/dL (12.0-16.0) L 12/10/17 05:15 Hct 34.3 % (36.0-48.0) L 12/10/17 05:15 MCV 87.5 fl (80.0-105.0) 12/10/17 05:15 MCH 29.1 pg (25.0-35.0) 12/10/17 05:15 MCHC 33.2 g/dl (31.0-37.0) 12/10/17 05:15 RDW 12.7 % (11.5-14.5) 12/10/17 05:15 Plt Count 210 10^3/uL (120.0-450.0) 12/10/17 05:15 MPV 9.1 fl (7.0-11.0) 12/10/17 05:15 Gran % 56.6 % (50.0-68.0) 12/10/17 05:15 Lymph % (Auto) 37.3 % (22.0-35.0) H 12/10/17 05:15 [place] % (Auto) 5.9 % (1.0-6.0) 12/10/17 05:15 Eos % (Auto) 0.1 % (1.5-5.0) L 12/10/17 05:15 Baso % (Auto) 0.1 % (0.0-3.0) 12/10/17 05:15 Gran # 4.05 (1.4-6.5) 12/10/17 05:15 Lymph # (Auto) 2.7 (1.2-3.4) 12/10/17 05:15 [place]ove # (Auto) 0.4 (0.1-0.6) 12/10/17 05:15 Eos # (Auto) 0.0 (0.0-0.7) 12/10/17 05:15 Baso # (Auto) 0.01 K/mm3 (0.0-2.0) 12/10/17 05:15 Retic Count 2.02 % (0.5-1.5) H 12/10/17 06:00 Sodium 141 mmol/L (132-148) 12/10/17 05:15 Potassium 4.6 mmol/L (3.6-5.0) 12/10/17 05:15 Chloride 110 mmol/L (98-107) H 12/10/17 05:15 Carbon Dioxide 24 mmol/L (21-33) 12/10/17 05:15 Anion Gap 12 (10-20) 12/10/17 05:15 BUN 8 mg/dL (7-21) 12/10/17 05:15 Creatinine 0.6 mg/dl (0.7-1.2) L 12/10/17 05:15 Est GFR ( Amer) > 60 12/10/17 05:15 Est GFR (Non-Af Amer) > 60 12/10/17 05:15 Random Glucose 94 mg/dL (70-110) 12/10/17 05:15 Calcium 8.9 mg/dL (8.4-10.5) 12/10/17 05:15 Phosphorus 3.6 mg/dL (2.5-4.5) 12/10/17 05:15 Magnesium 2.2 mg/dL (1.7-2.2) 12/10/17 05:15 Iron 81 ug/dL (45-180) 12/10/17 06:00 TIBC 277 ug/dL (265-497) 12/10/17 06:00 % Saturation 29 % (20-55) 12/10/17 06:00 Total Bilirubin 0.7 mg/dL (0.2-1.3) 12/10/17 05:15 AST 31 U/L (14-36) 12/10/17 05:15 ALT 28 U/L (7-56) 12/10/17 05:15 Alkaline Phosphatase 80 U/L (38-126) 12/10/17 05:15 Lactate Dehydrogenase 271 U/L (333-699) L 12/09/17 18:26 Total Creatine Kinase 101 U/L (35-230) 12/09/17 18:26 Troponin I < 0.01 ng/mL 12/09/17 18:26 Total Protein 6.6 g/dL (5.8-8.3) 12/10/17 05:15 Albumin 3.6 g/dL (3.0-4.8) 12/10/17 05:15 Globulin 3.0 gm/dL 12/10/17 05:15 Albumin/Globulin Ratio 1.2 (1.1-1.8) 12/10/17 05:15 Vitamin B12 239 pg/mL (239-931) 12/10/17 06:00 Folate 12.7 ng/mL 12/10/17 06:00 TSH 3rd Generation 1.77 mIU/mL (0.46-4.68) 12/10/17 05:15 Urine Color Yellow (YELLOW) 12/09/17 17:25 Urine Appearance Clear (CLEAR) 12/09/17 17:25 Urine pH 6.0 (4.7-8.0) 12/09/17 17:25 Ur Specific [place] 1.010 (1.005-1.035) 12/09/17 17:25 Urine Protein Negative mg/dL (<30 mg/dL) 12/09/17 17:25 Urine Glucose (UA) Negative mg/dL (NEGATIVE) 12/09/17 17:25 Urine Ketones Negative mg/dL (NEGATIVE) 12/09/17 17:25 Urine Blood Negative (NEGATIVE) 12/09/17 17:25 Urine Nitrate Negative (NEGATIVE) 12/09/17 17:25 Urine Bilirubin Negative (NEGATIVE) 12/09/17 17:25 Urine Urobilinogen 0.2 E.U./dL (<1 E.U./dL) 12/09/17 17:25 Ur Leukocyte Esterase Negative Bibi/uL (NEGATIVE) 12/09/17 17:25 Ur Random Creatinine 17 mg/dL 12/10/17 01:11 Ur Random Sodium 77 meq/L 12/10/17 01:11 Ur Random Potassium 20.1 meq/L 12/10/17 01:11 Ur Random Calcium 4.3 mg/dL 12/10/17 01:11 Urine Magnesium 2.8 mg/dL 12/10/17 01:11 Salicylates < 1 mg/dL (2.0-20.0) L 12/09/17 18:26 Urine Opiates Screen Negative (NEGATIVE) 12/09/17 17:25 Urine Methadone Screen Negative (NEGATIVE) 12/09/17 17:25 Acetaminophen < 10.0 ug/ml (10.0-20.0) L 12/09/17 18:26 Ur Barbiturates Screen Negative (NEGATIVE) 12/09/17 17:25 Ur Phencyclidine Scrn Negative (NEGATIVE) 12/09/17 17:25 Ur Amphetamines Screen Negative (NEGATIVE) 12/09/17 17:25 U Benzodiazepines Scrn Positive (NEGATIVE) H 12/09/17 17:25 U Oth Cocaine Metabols Negative (NEGATIVE) 12/09/17 17:25 U Cannabinoids Screen Negative (NEGATIVE) 12/09/17 17:25 - Hospital Course Hospital Course: Castro Hernandez DO PGY1 Internal Medicine Placement Specialist - Hospital Discharge Summary Patient is a 62F w/ a PMH of anxiety, depression, bipolar disorder; presented to ED on 12/09/17 w/ CC of feelings of passing out x1 day. She subsequently made an appointment with PMD Dr. Storey who referred patient to ED. patient reported that she did not lose consciousness, and her sensation was relieved after eating chocolate and bagel. Pt. admits to poor diet at this time with only 1 meal per day consisting of "processed cheese and toast" she denies any EtOH abuse or any feelings of depression/ suicidal ideation. She also denies any abd pain, N/V/D/C, dental pain. In the ED her vitals were stable however she was noted to have significant electrolyte abnormalities consisting of Hypokalemia, Hypomagnesmia, and Hypocalcemia. She received potassium, magnesium, and calcium supplements in ED along with NS IVF. ED CXR negative, and EKG NSR 89. CT Head no acute intracranial pathology. She was subsequently admitted to obs for work up of presyncope and electrolyte correction. She reported feeling well after ED interventions; and following AM all lab abnormalities were corrected. No telemetry alarms reported overnight; and follow up EKG was wnl. Orthostatic hypotension testing was wnl as well. No complaints voiced morning of discharge; she reported no near scyncopal episodes, no chest pain, dizziness. She tolerated PO diet well and ambulated well throughout the unit without any complaint or difficulty. Patient saw supervisor cd area in patient and recommendations were offered to patient regarding healthy diet. She was discharged with the following instructions: - You were admitted for presyncope, as well as electrolyte (potassium, magnesium , and calcium) abnormalities. - Please follow up with your PMD, Dr. Storey, within 7 days of discharge - Please start taking Calcium-Carbonate 500mg, and Magnesium oxide 400mg once a day; every day - Please continue your other home medications as prescribed - You stated that you have been having poor diet lately; we encourage you to have 3 healthy meals throughout the day - Please follow the recommendations that the supervisor cd area has provided; if you would like to make another appointment with the supervisor cd area please contact [facility] to arrange it - If your symptoms worsen, or if new concerning symptoms arise; please go to the nearest emergency department Patient is medically stable for discharge at this time. - Date & Time of H&P Date of H&P: 12/09/17 Time of H&P: 21:48 Discharge Exam - Head Exam Head Exam: NORMAL INSPECTION - Eye Exam Eye Exam: EOMI, Normal appearance, PERRL. absent: Scleral icterus - ENT Exam ENT Exam: Mucous Membranes Moist - Respiratory Exam Respiratory Exam: Clear to PA & Lateral, NORMAL BREATHING PATTERN, UNREMARKABLE. absent: Wheezes, Respiratory Distress - Cardiovascular Exam Cardiovascular Exam: RRR, +S1, +S2. absent: Systolic Murmur - GI/Abdominal Exam GI & Abdominal Exam: Normal Bowel Sounds, Soft, Unremarkable. absent: Tenderness - Extremities Exam Extremities exam: pedal pulses present (2+ TP/DP BL ) Additional comments: No lower extremity edema - Neurological Exam Neurological exam: Alert, CN II-XII Intact, Normal Gait, Oriented x3 Additional comments: 5/5 Gross strength upper extremity and lower BL Sensation intact - Psychiatric Exam Psychiatric exam: Normal Affect, Normal Mood - Skin Skin Exam: Dry, Intact, Normal Color, Warm Discharge Plan - Discharge Medications Prescriptions: Calcium Carbonate [Calcium] 500 mg PO DAILY #30 tablet Magnesium Oxide [Magnesium] 400 mg PO DAILY #30 capsule - Follow Up Plan Condition: STABLE Disposition: HOME/ ROUTINE Instructions: Hypokalemia (DC), Syncope (Fainting) (DC), Low Magnesium Level ( DC), Hypocalcemia (DC), Bipolar Disorder (DC), Hypokalemia (DC), Hypokalemia ( GEN) Additional Instructions: - You were admitted for presyncope, as well as electrolyte (potassium, magnesium , and calcium) abnormalities. - Please follow up with your PMD, Dr. Storey, within 7 days of discharge - Please start taking Calcium-Carbonate 500mg, and Magnesium oxide 400mg once a day; every day - Please continue your other home medications as prescribed - You stated that you have been having poor diet lately; we encourage you to have 3 healthy meals throughout the day - Please follow the recommendations that the supervisor cd area has provided; if you would like to make another appointment with the supervisor cd area please contact [facility] to arrange it - If your symptoms worsen, or if new concerning symptoms arise; please go to the nearest emergency department
== END 2017-12-10 21:26 | disposition home or self-care (01) ==
LOC: ED 14:39 → ERH 20:12 → 2RNO 22:30
PROVIDERS: ADMIT Internal Medicine; ATTEND Internal Medicine
DX: E83.42 Hypomagnesemia (principal); E83.51 Hypocalcemia; E87.6 Hypokalemia; F41.9 Anxiety disorder, unspecified; F31.9 Bipolar disorder, unspecified; I34.1 Nonrheumatic mitral (valve) prolapse
CPT/HCPCS: 36415; 70450; 71045; 80051; 80053; 80324; 80329; 80345; 80346; 80349; 80353; 80358; 80361; 81003; 82340; 82550; 82570; 82607; 82746; 83540; 83550; 83615; 83735; 83970; 83992; 84100; 84133; 84300; 84443; 84484; 85025; 85044; 87086; 93005; 96360; 96365; 96366; 96374; 99285; C9113; G0378; J1650; J1885; J3475; J3480; J7030; Q0161

== ENCOUNTER 2018-07-20 13:13 | Outpatient (CLI) | payer OTHER | END 2018-07-20 13:14 | disposition home or self-care (01) | LOC: RAD 13:13 | DX: R92.2 Inconclusive mammogram (principal) ==